=== PATIENT | male | born 1965 | race Caucasian/White ===

== ENCOUNTER → 2017-12-05 | Outpatient (CLI) | payer BC ==
--- NOTE | 2017-12-05 17:03 | XR ---
EXAMINATION TYPE: XR abdomen 1V DATE OF EXAM: 12/05/2017 CLINICAL DATA: 52-year-old male other intestinal obstruction, [facility] COMPARISON: None FINDINGS: Lung bases are clear. No evidence for free intraperitoneal air. Small air-fluid levels in the right side of the abdomen, probably within the ascending colon. Overall paucity of bowel gas limits assessment. No definite suspicious calcification seen. IMPRESSION: Overall paucity of bowel gas limits assessment. There are small air-fluid levels in the right side of the abdomen, probably within the ascending colon. This would suggest enteritis or ileus rather than small bowel obstruction. Radiographic follow-up may be helpful.
== END | disposition home or self-care (01) ==
LOC: RADXRMAIN 14:56
PROVIDERS: ATTEND Family Medicine
DX: R18.8 Other ascites (principal)
CPT/HCPCS: 74018

== ENCOUNTER 2017-12-11 15:42 | Emergency (ER) | payer BC ==
[2017-12-11] MEDS ORDERED: SODIUM CHLORIDE 0.9% 1,000 ML IV STA (16:26)
[2017-12-11] MEDS ORDERED: SODIUM CHLORIDE 0.9% 500 ML IV STA (16:26)
[2017-12-11] MEDS ORDERED: ONDANSETRON 4 MG/2 ML VIAL IVP STA (16:26)
[2017-12-11 16:51] LABS: Basophils % (A) 0 %; Eosinophils # (A) 0.3 k/uL (0-0.7); Eosinophils % (A) 3 %; HCT 39.9 % (39.0-53.0); HGB 13.2 gm/dL (13.0-17.5); Lymphocytes # (A) 2.3 k/uL (1.0-4.8); Lymphocytes % (A) 25 %; MCH 28.9 pg (25.0-35.0); MCV 87.4 fL (80.0-100.0); Mean Platelet Volume 6.4; Monocytes # (A) 0.5 k/uL (0-1.0); Monocytes % (A) 5 %; Neutrophils % (A) 65 %; Platelet Count 255 k/uL (150-450); RBC 4.56 m/uL (4.30-5.90); RDW 12.8 % (11.5-15.5); WBC 9.3 k/uL (3.8-10.6)
[2017-12-11 17:04] LABS: ALT 26 U/L (21-72); AST 24 U/L (17-59); Albumin 3.9 g/dL (3.5-5.0); Alkaline Phosphatase 66 U/L (38-126); Amylase 43 U/L (30-110); Anion Gap 7 mmol/L; Blood Urea Nitrogen 7 mg/dL (9-20); Calcium 8.9 mg/dL (8.4-10.2); Carbon Dioxide 26 mmol/L (22-30); Chloride 105 mmol/L (98-107); Glucose 117 mg/dL (74-99); Lipase 436 U/L (23-300); Potassium 4.2 mmol/L (3.5-5.1); Sodium 138 mmol/L (137-145); Total Bilirubin 0.3 mg/dL (0.2-1.3); Total Protein 6.5 g/dL (6.3-8.2)
[2017-12-11] MEDS: MORPHINE SULFATE 2 MG/ML SYRINGE IVP STA ×2 (17:15→17:16)
--- NOTE | 2017-12-11 17:19 | ED ---
Abdominal Pain HPI - General Chief Complaint: Abdominal Pain Stated Complaint: Back /Abd Pain Time Seen by Provider: 12/11/17 16:03 Source: patient Mode of arrival: ambulatory Limitations: no limitations - History of Present Illness Initial Comments: 22 years old male has abdominal pain and now constipation for last few days he stated that her family doctor wanted to CT of the abdomen this morning he been feeling some abdominal pain pain in the abdomen as well as pain in the flank areas is requesting CAT scan. Denies any headaches no neck stiffness no chest pain or shortness of breath has abdominal pain no frequency urgency dysuria no symptoms of TIA or CVA - Related Data Home Medications Medication Instructions Recorded Confirmed ALPRAZolam [Xanax] 1 mg PO TID PRN 12/11/17 12/11/17 Aspirin/Acetaminophen/Caffeine 1 tab PO Q12H PRN 12/11/17 12/11/17 [Excedrin Migraine Caplet] Cyclobenzaprine [Flexeril] 10 mg PO DIRECTED 12/11/17 12/11/17 Dextroamphetamine/Amphetamine 20 mg PO DAILY 12/11/17 12/11/17 [Adderall] Gabapentin [Neurontin] 300 mg PO TID 12/11/17 12/11/17 HYDROcodone/APAP 7.5-325MG [[place] 1 tab PO Q6HR PRN 12/11/17 12/11/17 7.5-325] Ibuprofen [Motrin] 600 mg PO QID PRN 12/11/17 12/11/17 Tadalafil [Cialis] 20 mg PO ONCE PRN 12/11/17 12/11/17 Previous Rx's Medication Instructions Recorded Ciprofloxacin HCl [Cipro] 500 mg PO Q12HR #14 tablet 12/11/17 metroNIDAZOLE [Flagyl] 500 mg PO TID #21 tab 12/11/17 Allergies Allergy/AdvReac Type Severity Reaction Status Date / Time cetirizine HCl [From Zyrtec] Allergy Unknown Verified 12/11/17 17:06 Review of Systems ROS Statement: Those systems with pertinent positive or pertinent negative responses have been documented in the HPI. ROS Other: All systems not noted in ROS Statement are negative. Past Medical History Past Medical History: Osteoarthritis (OA) Additional Past Medical History / Comment(s): chronic back pain History of Any Multi-Drug Resistant Organisms: None Reported Past Surgical History: Tonsillectomy Additional Past Surgical History / Comment(s): eye surgery, vasectomy Past Psychological History: No Psychological Hx Reported Smoking Status: Current every day smoker Past Alcohol Use History: Abuse, Daily Past Drug Use History: None Reported General Exam - General Exam Comments Initial Comments: General: The patient is awake and alert, in no distress Skin: Skin is warm and dry and no rashes or lesions are noted. Eye: Pupils are equal, round and reactive to light, extra-ocular movements are intact; there is normal conjunctiva bilaterally. Ears, nose, mouth and throat: There are moist mucous membranes and no oral lesions. Neck: The neck is supple, there is no tenderness or JVD. Cardiovascular: There is a regular rate and rhythm. No murmur, rub or gallop is appreciated. Respiratory: To auscultation bilateral, no wheezing no rhonchi no distress respiratory sierra noticed Gastrointestinal: Mild diffuse tenderness all over the abdomen and over the flank areas Back: There is no tenderness to palpation in the midline. There is no obvious deformity. Musculoskeletal: Normal ROM, no tenderness, There is no pedal edema. There is no calf tenderness or swelling. No cords were appreciated. Neurological: CN II-XII intact, Cranial nerves III through XII are intact. There are no obvious motor or sensory deficits. Coordination appears grossly intact. Speech is normal. Psychiatric: Cooperative, appropriate mood & affect, normal judgment. Limitations: no limitations Course Vital Signs 12/11/17 12/11/17 15:44 17:20 Temperature 97.8 F Pulse Rate 91 77 Respiratory 18 16 Rate Blood Pressure 120/85 117/61 O2 Sat by Pulse [address] abdomen showed down colitis as well as enteritis lipase is 436 CBC and CMP is normal patient be gone on him and Cipro and Flagyl for his enteritis is advised not to use any laxatives and now be on a soft diet for next couple days and return to ER if symptoms get worse Medical Decision Making - Lab Data Result diagrams: 12/11/17 16:30 12/11/17 16:30 Lab Results 12/11/17 12/11/17 12/11/17 Range/Units 16:30 16:30 17:20 WBC 9.3 (3.8-10.6) k/uL RBC 4.56 (4.30-5.90) m/uL Hgb 13.2 (13.0-17.5) gm/dL Hct 39.9 (39.0-53.0) % MCV 87.4 (80.0-100.0) fL MCH 28.9 (25.0-35.0) pg MCHC 33.0 (31.0-37.0) g/dL RDW 12.8 (11.5-15.5) % Plt Count 255 (150-450) k/uL Neutrophils % 65 % Lymphocytes % 25 % Monocytes % 5 % Eosinophils % 3 % Basophils % 0 % Neutrophils # 6.0 (1.3-7.7) k/uL Lymphocytes # 2.3 (1.0-4.8) k/uL Monocytes # 0.5 (0-1.0) k/uL Eosinophils # 0.3 (0-0.7) k/uL Basophils # 0.0 (0-0.2) k/uL Sodium 138 (137-145) mmol/L Potassium 4.2 (3.5-5.1) mmol/L Chloride 105 (98-107) mmol/L Carbon Dioxide 26 (22-30) mmol/L Anion Gap 7 mmol/L BUN 7 L (9-20) mg/dL Creatinine 0.60 L (0.66-1.25) mg/dL Est GFR (CKD-EPI)AfAm >90 (>60 ml/min/1.73 sqM) Est GFR (CKD-EPI)NonAf >90 (>60 ml/min/1.73 sqM) Glucose 117 H (74-99) mg/dL Calcium 8.9 (8.4-10.2) mg/dL Total Bilirubin 0.3 (0.2-1.3) mg/dL AST 24 (17-59) U/L ALT 26 (21-72) U/L Alkaline Phosphatase 66 (38-126) U/L Total Protein 6.5 (6.3-8.2) g/dL Albumin 3.9 (3.5-5.0) g/dL Amylase 43 (30-110) U/L Lipase 436 H (23-300) U/L Prostate Specific Ag 0.69 (0.00-4.00) ng/mL Urine Color Light Yellow Urine Appearance Clear (Clear) Urine pH 6.5 (5.0-8.0) Ur Specific [place] 1.006 (1.001-1.035) Urine Protein Negative (Negative) Urine Glucose (UA) Negative (Negative) Urine Ketones Negative (Negative) Urine Blood Negative (Negative) Urine Nitrite Negative (Negative) Urine Bilirubin Negative (Negative) Urine Urobilinogen <2.0 (<2.0) mg/dL Ur Leukocyte Esterase Negative (Negative) Disposition Clinical Impression: Pancreatitis, Colitis, Enteritis Disposition: HOME SELF-CARE Condition: Good Instructions: Colitis (ED) Prescriptions: Ciprofloxacin HCl [Cipro] 500 mg PO Q12HR #14 tablet metroNIDAZOLE [Flagyl] 500 mg PO TID #21 tab Is patient prescribed a controlled substance at d/c from ED?: No Referrals: Arian Rubio DO [Primary Care Provider] - 1-2 days
--- NOTE | 2017-12-11 17:21 | XR ---
EXAMINATION TYPE: XR KUB DATE OF EXAM: 12/11/2017 4:50 PM CLINICAL HISTORY: Abdominal pain TECHNIQUE: Single upright image of the abdomen is obtained. COMPARISON: None. FINDINGS: Scattered gas is seen in nondilated small bowel loops. Gas and fecal material is seen in no ndilated colon. Few colonic air-fluid levels are suggestive of malabsorption and possible diarrhea. T here is no visceromegaly, pneumoperitoneum, or abnormal calcification appreciated. The lung bases are clear and the osseous structures are intact. There is a mild levoscoliotic curvature of the lumbosac ral spine. IMPRESSION: 1. Nonobstructive bowel gas pattern. 2. Few colonic air-fluid levels are suggestive of colonic malabsorption/diarrhea. No large bowel dila tation to suggest obstruction.
[2017-12-11 17:30] LABS: Appearance,Urine Clear (Clear); Bilirubin,Urine Negative (Negative); Blood,Urine Negative (Negative); Color,Urine Light Yellow; Glucose,Urine (UA) Negative (Negative); Ketones,Urine Negative (Negative); Leukocyte Esterase,Urine Negative (Negative); Nitrite,Urine Negative (Negative); PH, Urine 6.5 (5.0-8.0); Protein,Urine Negative (Negative); Specific Gravity,Urine 1.006 (1.001-1.035); Urobilinogen,Urine <2.0 mg/dL (<2.0)
[2017-12-11 17:33] LABS: Prostate Specific Antigen 0.69 ng/mL (0.00-4.00)
--- NOTE | 2017-12-11 18:04 | CT ---
EXAMINATION TYPE: CT abdomen pelvis w con DATE OF EXAM: 12/11/2017 COMPARISON: None HISTORY: Abdominal pain CT DLP: 418 mGycm Automated exposure control for dose reduction was used. TECHNIQUE: Helical acquisition of images was performed from the lung bases through the pelvis. CONTRAST: Performed without Oral Contrast and with IV Contrast, patient injected with 100 mL of Isovue 300. FINDINGS: LUNG BASES: Minimal bibasilar subsegmental dependent atelectasis. LIVER/GB: Gallbladder is partially contracted. No radiopaque gallstones. PANCREAS: No significant abnormality is seen. SPLEEN: No significant abnormality is seen. ADRENALS: No significant abnormality is seen. KIDNEYS: Kidneys enhance and excrete symmetrically without hydronephrosis. FREE AIR: No free air is visualized. ADENOPATHY: No greater than 1 cm short axis lymph nodes are seen within the abdomen or pelvis. There are multiple nonenlarged periaortic lymph nodes and scattered mesenteric lymph nodes. REPRODUCTIVE ORGANS: Prostate gland is heterogenous containing central zone calcifications. URINARY BLADDER: Urinary bladder demonstrates circumferential wall thickening that may relate to inc omplete distention. Correlate with urinalysis. Small urachal remnant is incidentally noted. OSSEOUS STRUCTURES: Osseous structures are intact. Multilevel mild degenerative change. BOWEL: Large bowel is nondilated containing few air-fluid levels within the right hemicolon. No evid ence of small bowel dilatation. Lack of contrast limits evaluation for bowel wall thickening. Minimal left mid abdominal bowel wall thickening of the small bowel is suggested. No evidence of dilated bow el to suggest obstruction. OTHER: Abdominal aorta is of normal course and caliber with mild calcific atheromatous changes. IMPRESSION: 1. Air-fluid levels within the right hemicolon suggestive of colonic malabsorption. This can be seen in inflammatory/infectious colitis. No significant pericolonic fat stranding although there is limita tion of bowel due to lack of oral contrast there is suggestion of multifocal small bowel wall thicken ing within the left mid abdomen that also may relate to inflammatory or infectious enteritis. No evid ence of bowel obstruction. 2. Urinary bladder wall thickening may relate to incomplete distention or cystitis. Correlate with ur inalysis.
[2017-12-11 18:56] VITALS: BP 115/72; PULSE 79; RESP 18; TEMP 98.2
== END 2017-12-11 18:55 | disposition home or self-care (01) ==
LOC: EC 15:42
DX: K85.90 Acute pancreatitis without necrosis or infection, unspecified (principal); K52.9 Noninfective gastroenteritis and colitis, unspecified; K59.00 Constipation, unspecified; F17.200 Nicotine dependence, unspecified, uncomplicated; Z98.52 Vasectomy status; Z79.899 Other long term (current) drug therapy; Z88.8 Allergy status to other drugs, medicaments and biological substances
CPT/HCPCS: 99284; 96374; 96361 ×2; 36415; 84153; 80053; 82150; 83690; 85025; 81003; 74018; 74177; Q9967

== ENCOUNTER 2017-12-16 14:56 | Emergency (ER) | payer BC ==
[2017-12-16 15:01] VITALS: RESP 18
--- NOTE | 2017-12-16 15:45 | ED ---
General Adult HPI - General Chief complaint: Abdominal Pain Stated complaint: lower back and flank pain Time Seen by Provider: 12/16/17 15:14 Source: patient, RN notes reviewed Mode of arrival: ambulatory Limitations: no limitations - History of Present Illness Initial comments: This is a 52-year-old male who presents to the emergency department with chief complaint of left lower back pain. Patient states that he has chronic back pain but that this does not feel like a musculoskeletal issue. He states he was seen here on December 11 and was diagnosed with pancreatitis, enteritis and colitis because a CT scan of the abdomen and pelvis was obtained. He has been taking Cipro and Flagyl. Patient states that his pain has not yet gone away. He states that he is concerned because he noticed dark colored urine that started yesterday. Denies any fevers or chills, vomiting, diarrhea or constipation. Denies any blood in the stool. Patient states that he is not having any abdominal pain. - Related Data Home Medications Medication Instructions Recorded Confirmed ALPRAZolam [Xanax] 1 mg PO TID PRN 12/11/17 12/11/17 Aspirin/Acetaminophen/Caffeine 1 tab PO Q12H PRN 12/11/17 12/11/17 [Excedrin Migraine Caplet] Cyclobenzaprine [Flexeril] 10 mg PO DIRECTED 12/11/17 12/11/17 Dextroamphetamine/Amphetamine 20 mg PO DAILY 12/11/17 12/11/17 [Adderall] Gabapentin [Neurontin] 300 mg PO TID 12/11/17 12/11/17 HYDROcodone/APAP 7.5-325MG [[place] 1 tab PO Q6HR PRN 12/11/17 12/11/17 7.5-325] Ibuprofen [Motrin] 600 mg PO QID PRN 12/11/17 12/11/17 Tadalafil [Cialis] 20 mg PO ONCE PRN 12/11/17 12/11/17 Previous Rx's Medication Instructions Recorded Ciprofloxacin HCl [Cipro] 500 mg PO Q12HR #14 tablet 12/11/17 metroNIDAZOLE [Flagyl] 500 mg PO TID #21 tab 12/11/17 Allergies Allergy/AdvReac Type Severity Reaction Status Date / Time cetirizine HCl [From Zyrtec] Allergy Unknown Verified 12/16/17 15:00 Review of Systems ROS Statement: Those systems with pertinent positive or pertinent negative responses have been documented in the HPI. ROS Other: All systems not noted in ROS Statement are negative. Past Medical History Past Medical History: Osteoarthritis (OA) Additional Past Medical History / Comment(s): chronic back pain History of Any Multi-Drug Resistant Organisms: None Reported Past Surgical History: Tonsillectomy Additional Past Surgical History / Comment(s): eye surgery, vasectomy Past Psychological History: No Psychological Hx Reported Smoking Status: Current every day smoker Past Alcohol Use History: Abuse, Daily Past Drug Use History: None Reported General Exam - General Exam Comments Initial Comments: General: Awake and alert, well-developed; in no apparent distress. Patient does not appear acutely ill. HEENT: Head atraumatic, normocephalic. Pupils are equal, round and reactive to light. Extraocular movements intact. Oropharynx moist without erythema or exudate. Neck: Supple. Normal ROM. Cardiovascular: Regular rate and rhythm. No murmurs, rubs or gallops. Chest symmetrical. Respiratory: Lungs clear to auscultation bilaterally. No wheezes, rales or rhonchi. Normal respiratory effort with no use of accessory muscles. Abdomen: Soft, non-tender, non-distended. No rigidity, rebound or guarding. Normal bowel sounds in all 4 quadrants. Musculoskeletal: Normal ROM, no tenderness bilateral upper and lower extremities. Ambulating normally. Skin: [place], warm and dry without rashes or lesions. Neurological: Alert and oriented x3. CN II-XII grossly intact. Speech is fluent and answers are appropriate. No focal neuro deficits. Psychiatric: Normal mood and affect. No overt signs of depression or anxiety noted. Limitations: no limitations Back exam: Present: normal inspection, full ROM. Absent: tenderness, paraspinal tenderness, vertebral tenderness Course Vital Signs 12/16/17 14:58 Temperature 97.8 F Pulse Rate 85 Respiratory 18 Rate Blood Pressure 122/77 O2 Sat by Pulse 98 Oximetry Medical Decision Making - Medical Decision Making This is a 52-year-old male who presents to the emergency department with chief complaint of left lower back pain. Patient states he was evaluated for this 6 days ago and was diagnosed with enteritis, colitis and pancreatitis. Patient is on Cipro and Flagyl. Patient states the pain has not gone away but it also has not worsened. He states that he presents to the emergency department because he has noticed dark colored urine and is nervous that he has blood in the urine. CBC, CMP and UA are unremarkable. No evidence of hematuria. Patient states that the pain he is feeling in his left lower back, however he states he knows it is not his back as he has dealt with chronic back pain for most of his life for which he takes [place]. Patient refuses any radiology studies of the back. Vital signs have been stable and patient is in no acute distress. Recommended following up with his primary care provider. Patient will be discharged home at this time. All questions answered. - Lab Data Result diagrams: 12/16/17 15:44 12/16/17 15:44 Lab Results 12/16/17 12/16/17 12/16/17 Range/Units 15:44 15:44 15:44 WBC 8.2 (3.8-10.6) k/uL RBC 4.80 (4.30-5.90) m/uL Hgb 13.4 (13.0-17.5) gm/dL Hct 42.0 (39.0-53.0) % MCV 87.6 (80.0-100.0) fL MCH 27.8 (25.0-35.0) pg MCHC 31.8 (31.0-37.0) g/dL RDW 13.0 (11.5-15.5) % Plt Count 271 (150-450) k/uL Neutrophils % 63 % Lymphocytes % 28 % Monocytes % 5 % Eosinophils % 3 % Basophils % 0 % Neutrophils # 5.1 (1.3-7.7) k/uL Lymphocytes # 2.3 (1.0-4.8) k/uL Monocytes # 0.4 (0-1.0) k/uL Eosinophils # 0.2 (0-0.7) k/uL Basophils # 0.0 (0-0.2) k/uL Sodium 138 (137-145) mmol/L Potassium 4.2 (3.5-5.1) mmol/L Chloride 106 (98-107) mmol/L Carbon Dioxide 24 (22-30) mmol/L Anion Gap 8 mmol/L BUN 7 L (9-20) mg/dL Creatinine 0.68 (0.66-1.25) mg/dL Est GFR (CKD-EPI)AfAm >90 (>60 ml/min/1.73 sqM) Est GFR (CKD-EPI)NonAf >90 (>60 ml/min/1.73 sqM) Glucose 93 (74-99) mg/dL Calcium 9.3 (8.4-10.2) mg/dL Total Bilirubin 0.5 (0.2-1.3) mg/dL AST 29 (17-59) U/L ALT 26 (21-72) U/L Alkaline Phosphatase 62 (38-126) U/L Total Protein 6.9 (6.3-8.2) g/dL Albumin 4.4 (3.5-5.0) g/dL Urine Color Yellow Urine Appearance Cloudy (Clear) Urine pH 5.5 (5.0-8.0) Ur Specific [place] 1.007 (1.001-1.035) Urine Protein Negative (Negative) Urine Glucose (UA) Negative (Negative) Urine Ketones Negative (Negative) Urine Blood Negative (Negative) Urine Nitrite Negative (Negative) Urine Bilirubin Negative (Negative) Urine Urobilinogen <2.0 (<2.0) mg/dL Ur Leukocyte Esterase Negative (Negative) Urine RBC <1 (0-5) /hpf Urine WBC 1 (0-5) /hpf Ur Squamous Epith Cells <1 (0-4) /hpf Amorphous Sediment Occasional H (None) /hpf Urine Bacteria Occasional H (None) /hpf Urine Mucus Moderate H (None) /hpf Disposition Clinical Impression: Low back pain Disposition: HOME SELF-CARE Condition: Good Instructions: Back Pain (ED) Additional Instructions: Please follow up with primary care provider within 1-2 days. Return to emergency department if symptoms should worsen or any concerns arise. Is patient prescribed a controlled substance at d/c from ED?: No Referrals: Arian Rubio DO [Primary Care Provider] - 1-2 days Time of Disposition: 16:32
[2017-12-16 15:52] LABS: Basophils % (A) 0 %; Eosinophils # (A) 0.2 k/uL (0-0.7); Eosinophils % (A) 3 %; HGB 13.4 gm/dL (13.0-17.5); Lymphocytes # (A) 2.3 k/uL (1.0-4.8); Lymphocytes % (A) 28 %; MCH 27.8 pg (25.0-35.0); MCHC 31.8 g/dL (31.0-37.0); MCV 87.6 fL (80.0-100.0); Mean Platelet Volume 6.5; Monocytes # (A) 0.4 k/uL (0-1.0); Monocytes % (A) 5 %; Neutrophils # (A) 5.1 k/uL (1.3-7.7); Neutrophils % (A) 63 %; Platelet Count 271 k/uL (150-450); WBC 8.2 k/uL (3.8-10.6)
[2017-12-16 15:58] LABS: Amorphous Sediment,Urine Occasional /hpf; Appearance,Urine Cloudy (Clear); Bacteria,Urine Occasional /hpf; Bilirubin,Urine Negative (Negative); Blood,Urine Negative (Negative); Color,Urine Yellow; Glucose,Urine (UA) Negative (Negative); Ketones,Urine Negative (Negative); Leukocyte Esterase,Urine Negative (Negative); Mucus,Urine Moderate /hpf; Nitrite,Urine Negative (Negative); PH, Urine 5.5 (5.0-8.0); Protein,Urine Negative (Negative); RBC,Urine <1 /hpf (0-5); Specific Gravity,Urine 1.007 (1.001-1.035); Squamous Epithelial Cell,Urine <1 /hpf (0-4); Urobilinogen,Urine <2.0 mg/dL (<2.0); WBC,Urine 1 /hpf (0-5)
[2017-12-16 16:01] LABS: ALT 26 U/L (21-72); AST 29 U/L (17-59); Albumin 4.4 g/dL (3.5-5.0); Alkaline Phosphatase 62 U/L (38-126); Anion Gap 8 mmol/L; Blood Urea Nitrogen 7 mg/dL (9-20); Calcium 9.3 mg/dL (8.4-10.2); Carbon Dioxide 24 mmol/L (22-30); Chloride 106 mmol/L (98-107); Glucose 93 mg/dL (74-99); Potassium 4.2 mmol/L (3.5-5.1); Sodium 138 mmol/L (137-145); Total Bilirubin 0.5 mg/dL (0.2-1.3); Total Protein 6.9 g/dL (6.3-8.2)
[2017-12-16 16:51] VITALS: BP 145/78; PULSE 73; TEMP 99
== END 2017-12-16 16:51 | disposition home or self-care (01) ==
LOC: EC 14:56
DX: M54.5 Low back pain (principal); R10.9 Unspecified abdominal pain; M19.90 Unspecified osteoarthritis, unspecified site; F17.200 Nicotine dependence, unspecified, uncomplicated; Z87.19 Personal history of other diseases of the digestive system; Z98.52 Vasectomy status; Z79.899 Other long term (current) drug therapy; Z88.8 Allergy status to other drugs, medicaments and biological substances
CPT/HCPCS: 36415; 80053; 81001; 85025; 99284

== ENCOUNTER → 2017-12-25 | Outpatient (CLI) | payer BC ==
--- NOTE | 2017-12-25 15:19 | NM ---
EXAMINATION TYPE: NM hepatobiliary w CCK DATE OF EXAM: 12/25/2017 COMPARISON: CT abdomen pelvis December 11, 2017. HISTORY: Chronic cholecystitis per order. Abdominal pain with diminished appetite per patient. TECHNIQUE: After the intravenous administration of 5.1 mCi Tc 99m Mebrofenin hepatobiliary scintigrap hy is performed. Immediate images post injection. FINDINGS: There is satisfactory initial accumulation of tracer by the liver. The gallbladder is visualized wit hin 15 minutes. The small bowel activity is noted within 60 minutes. At one hour CCK was administer ed, patient was injected with 1.5 mcg of Kinevac, and gallbladder ejection fraction is calculated at 86 %, not deviated from the normal range. Therefore there is no scintigraphic evidence of cystic or common bile duct obstruction to suggest acute cholecystitis. IMPRESSION: Ejection fraction is 86%, some consider this abnormal or a hyperkinetic response.
== END | disposition home or self-care (01) ==
LOC: RADNMMAIN 13:04
PROVIDERS: ATTEND Surgery
DX: K81.1 Chronic cholecystitis (principal)
CPT/HCPCS: 78227; A9537; J2805

== ENCOUNTER → 2021-06-29 | Outpatient (CLI) | payer OTHER ==
[2021-06-29 19:25] LABS: HCT 40.9 % (39.6-50.0); HGB 12.7 g/dL (13.0-17.0); MCH 28.7 pg (27.0-32.0); MCHC 31.1 g/dL (32.0-37.0); MCV 92.5 fL (80.0-97.0); Mean Platelet Volume 9.6 fL (9.5-12.2); NRBC Per 100 WBC 0 /100 WBCS (0.0-0.0); Platelet Count 312 X 10*3/uL (140-440); RBC 4.42 X 10*6/uL (4.40-5.60); RDW 13.4 % (11.5-14.5); WBC 12.57 X 10*3/uL (4.50-10.00)
[2021-06-29 19:53] LABS: ALT 26 U/L (10-49); AST 19 U/L (14-35); African American GFR (CKD) 126.3 (60.0-200.0); Albumin 4.4 g/dL (3.8-4.9); Albumin/Globulin Ratio 1.86 (1.60-3.17); Alkaline Phosphatase 113 U/L (41-126); BUN/Creat Ratio 12.39 Ratio (12.00-20.00); Blood Urea Nitrogen 8.3 mg/dL (9.0-27.0); Calcium 9.2 mg/dL (8.7-10.3); Chloride 104 mmol/L (96-109); Globulin 2.4 g/dL (1.6-3.3); Glucose 100 mg/dL (70-110); Non-African American GFR(CKD) 108.9 (60.0-200.0); Potassium 4.9 mmol/L (3.5-5.5); Sodium 139 mmol/L (135-145); Total Bilirubin <0.15 mg/dL (0.30-1.20); Total Protein 6.8 g/dL (6.2-8.2)
== END | disposition home or self-care (01) ==
LOC: LABWHC1 10:19
PROVIDERS: ATTEND Family Medicine
DX: E51.9 Thiamine deficiency, unspecified (principal); R20.9 Unspecified disturbances of skin sensation
CPT/HCPCS: 36415; 80053; 82607; 82746; 84425; 84443; 85027

== ENCOUNTER → 2021-09-22 | Outpatient (CLI) | payer OTHER | END | disposition home or self-care (01) | LOC: LABWHC1 09:21 | PROVIDERS: ATTEND Family Medicine | DX: Z53.9 Procedure and treatment not carried out, unspecified reason (principal) ==

== ENCOUNTER 2023-05-28 09:54 | Emergency (ER) | payer OTHER ==
[2023-05-28] MEDS ORDERED: ACETAMINOPHEN TAB 325 MG TAB PO STA (10:15)
--- NOTE | 2023-05-28 10:18 | ED ---
Upper Extremity HPI - General Chief Complaint: Extremity Injury, Upper Stated Complaint: L elbow injury Time Seen by Provider: 05/28/23 10:17 Source: patient, RN notes reviewed Mode of arrival: ambulatory Limitations: no limitations - History of Present Illness Initial Comments: Patient's 57-year-old male presented ER with chief complaint of left elbow pain and swelling. Patient states this started about 33 hours ago. Patient believes he was sleepwalking and might have injured it. Patient denies limited range of motion but does state it is painful to move. Patient also is endorsing pain and swelling in his left fingers. Patient reports that pain does radiate up into his neck. Patient is UTD on tetanus. Patient denies any history of gout, fevers, chills, night sweats, chest pain, shortness of breath. - Related Data Home Medications Medication Instructions Recorded Confirmed ALPRAZolam [Xanax] 1 mg PO TID PRN 12/11/17 12/11/17 Aspirin/Acetaminophen/Caffeine 1 tab PO Q12H PRN 12/11/17 12/11/17 [Excedrin Migraine Caplet] Cyclobenzaprine [Flexeril] 10 mg PO DIRECTED 12/11/17 12/11/17 Dextroamphetamine/Amphetamine 20 mg PO DAILY 12/11/17 12/11/17 [Adderall] Gabapentin [Neurontin] 300 mg PO TID 12/11/17 12/11/17 HYDROcodone/APAP 7.5-325MG [[place] 1 tab PO Q6HR PRN 12/11/17 12/11/17 7.5-325] Ibuprofen [Motrin] 600 mg PO QID PRN 12/11/17 12/11/17 tadalafiL [Cialis] 20 mg PO ONCE PRN 12/11/17 12/11/17 Previous Rx's Medication Instructions Recorded Ciprofloxacin HCl [Cipro] 500 mg PO Q12HR #14 tablet 12/11/17 metroNIDAZOLE [Flagyl] 500 mg PO TID #21 tab 12/11/17 clindamycin HCL 300 mg PO TID 14 Days #42 cap 05/28/23 Allergies Allergy/AdvReac Type Severity Reaction Status Date / Time cetirizine HCl [From Zyrtec] Allergy Unknown Verified 05/28/23 10:08 Review of Systems ROS Statement: Those systems with pertinent positive or pertinent negative responses have been documented in the HPI. ROS Other: All systems not noted in ROS Statement are negative. Past Medical History Past Medical History: Osteoarthritis (OA) Additional Past Medical History / Comment(s): chronic back pain History of Any Multi-Drug Resistant Organisms: None Reported Past Surgical History: Tonsillectomy Additional Past Surgical History / Comment(s): eye surgery, vasectomy Past Psychological History: No Psychological Hx Reported Smoking Status: Current every day smoker Past Alcohol Use History: Abuse, Daily Past Drug Use History: None Reported General Exam Limitations: no limitations General appearance: alert, in no apparent distress Head exam: Present: atraumatic, normocephalic, normal inspection Respiratory exam: Present: normal lung sounds bilaterally. Absent: respiratory distress, wheezes, rales, rhonchi, stridor Cardiovascular Exam: Present: normal rhythm, tachycardia, normal heart sounds Extremities exam: Present: other (Left elbow is erythematous and edematous. Warm to touch. 2+ left radial pulse. Equal strength bilaterally. Sensation intact. Full flexion/extension ) Neurological exam: Present: alert, oriented X3, CN II-XII intact Psychiatric exam: Present: normal affect, normal mood Skin exam: Present: warm, dry, normal color, other (Small superficial healing wounds noted on the third and second digits. No signs of infection.). Absent: rash Course Vital Signs 05/28/23 05/28/23 05/28/23 10:05 11:56 12:13 Temperature 102.1 F H 99.7 F H Pulse Rate 126 H 107 H Respiratory 20 18 Rate Blood Pressure 128/76 112/68 O2 Sat by Pulse 97 98 Oximetry Medical Decision Making - Medical Decision Making Was pt. sent in by a medical professional or institution (, PA, [facility], urgent care, hospital, or [facility]...) When possible be specific @ -No Did you speak to anyone other than the patient for history (EMS, parent, family, police, friend...)? What history was obtained from this source @ -No Did you review nursing and triage notes (agree or disagree)? Why? @ -I reviewed and agree with nursing and triage notes Were old charts reviewed (outside hosp., previous admission, EMS record, old EKG, old radiological studies, urgent care reports/EKG's, [facility] records)? Report findings @ -No old charts were reviewed Differential Diagnosis (chest pain, altered mental status, abdominal pain women, abdominal pain men, vaginal bleeding, weakness, fever, dyspnea, syncope, headache, dizziness, GI bleed, back pain, seizure, CVA, palpatations, mental health, musculoskeletal)? @ -Differential Musculoskeletal: Muscular strain, contusion, ligament sprain, fracture, arthritis, septic arthritis, bursitis, cellulitis, muscle spasm, nerve compression, DVT, arterial occlusion, herpes zoster, electrolyte abnormality, tumor.... This is not meant to be in all inclusive list EKG interpreted by me (3pts min.). @ -None X-rays interpreted by me (1pt min.). @ -Left elbow x-ray interpreted by me shows no acute osseous process. There is soft tissue swelling. CT interpreted by me (1pt min.). @ -None done U/S interpreted by me (1pt. min.). @ -None done What testing was considered but not performed or refused? (CT, X-rays, U/S, labs)? Why? @ -None What meds were considered but not given or refused? Why? @ -None Did you discuss the management of the patient with other professionals (professionals i.e. , PA, [facility], lab, RT, psych nurse, long term care social worker, functional manager, teacher, commissioned defence force officer, field nurse case manager)? Give summary @ -No Was smoking cessation discussed for >3mins.? @ -No Was critical care preformed (if so, how long)? @ -No Were there social determinants of health that impacted care today? How? (Homelessness, low income, unemployed, alcoholism, drug addiction, transportation, low edu. Level, literacy, decrease access to med. care, fci, rehab)? @ -No Was there de-escalation of care discussed even if they declined (Discuss DNR or withdrawal of care, Hospice)? DNR status @ -No What co-morbidities impacted this encounter? (DM, HTN, Smoking, COPD, CAD, Cancer, CVA, ARF, Chemo, Hep., AIDS, mental health diagnosis, sleep apnea, morbid obesity)? @ -None Was patient admitted / discharged? Hospital course, mention meds given and route, prescriptions, significant lab abnormalities, going to OR and other pertinent info. @ -Discharge. Patient is a 57-year-old male presented ER chief complaint of left elbow pain and swelling. On examination, temperature of 99.7. Vitals otherwise stable. Patient's left elbow was edematous and erythematous with extention distally. Neurovascularly intact. Labs were significant for a WBC 10.7, CRP 14 otherwise unremarkable. Left elbow x-rays interpreted by me shows no acute osseous pathology. There is soft tissue swelling correlated to bursitis or cellulitis. I discussed imaging and lab findings with patient. I advised on admission for IV antibiotics but patient refused. Strict return parameters were discussed. He received PO tylenol and 600mg Clindamycin in the ER. Patient prescribed clindamycin. I educated patient on the importance of completing full course of antibiotics. I advised [id number] Tylenol and Motrin for pain control. Patient will be discharged in stable condition with follow-up to PCP. He expressed understanding and agreement with care plan. Undiagnosed new problem with uncertain prognosis? @ -No Drug Therapy requiring intensive monitoring for toxicity (Heparin, Nitro, Insulin, Cardizem)? @ -No Were any procedures done? @ -No Diagnosis/symptom? @ -Infectious bursitis Acute, or Chronic, or Acute on Chronic? @ -Acute Uncomplicated (without systemic symptoms) or Complicated (systemic symptoms)? @ -Uncomplicated Side effects of treatment? @ -No Exacerbation, Progression, or Severe Exacerbation? @ -No Poses a threat to life or bodily function? How? (Chest pain, [place], [place], pneumonia, PE, COPD, DKA, ARF, appy, cholecystitis, CVA, Diverticulitis, Homicidal, Suicidal, threat to staff... and all critical care pts) @ -No - Lab Data Result diagrams: 05/28/23 10:24 05/28/23 10:24 Lab Results 05/28/23 05/28/23 Range/Units 10:24 10:24 WBC 10.7 H (3.8-10.6) k/uL RBC 4.85 (4.30-5.90) m/uL Hgb 13.4 (13.0-17.5) gm/dL Hct 40.8 (39.0-53.0) % MCV 84.2 (80.0-100.0) fL MCH 27.6 (25.0-35.0) pg MCHC 32.7 (31.0-37.0) g/dL RDW 14.6 (11.5-15.5) % Plt Count 183 (150-450) k/uL MPV 7.8 Hypochromasia Slight Sodium 127 L (137-145) mmol/L Potassium 4.2 (3.5-5.1) mmol/L Chloride 96 L (98-107) mmol/L Carbon Dioxide 21 L (22-30) mmol/L Anion Gap 10 mmol/L BUN 9 (9-20) mg/dL Creatinine 0.68 (0.66-1.25) mg/dL Est GFR (CKD-EPI)AfAm >90 (>60 ml/min/1.73 sqM) Est GFR (CKD-EPI)NonAf >90 (>60 ml/min/1.73 sqM) Glucose 108 H (74-99) mg/dL Uric Acid 3.3 L (3.5-8.5) mg/dL Calcium 8.4 (8.4-10.2) mg/dL Total Bilirubin 0.6 (0.2-1.3) mg/dL AST 32 (17-59) U/L ALT 21 (4-49) U/L Alkaline Phosphatase 126 (38-126) U/L C-Reactive Protein 14.5 H (<1.0) mg/dL Total Protein 7.1 (6.3-8.2) g/dL Albumin 4.0 (3.5-5.0) g/dL - Radiology Data Radiology results: report reviewed, image reviewed Disposition Clinical Impression: Other infective bursitis, left elbow Disposition: HOME SELF-CARE Condition: Stable Instructions (If sedation given, give patient instructions): Elbow Bursitis (ED) Additional Instructions: Please complete full course of clindamycin. Please use [id number] Tylenol and Motrin for pain control. Please return to the ER for any new or worsening symptoms. Prescriptions: clindamycin HCL 300 mg PO TID 14 Days #42 cap Is patient prescribed a controlled substance at d/c from ED?: No Referrals: Tim Rod MD [Primary Care Provider] - 1-2 days Time of Disposition: 12:09
--- NOTE | 2023-05-28 10:47 | XR ---
EXAMINATION TYPE: XR elbow complete LT DATE OF EXAM: 05/28/2023 10:38 AM CLINICAL INDICATION:Male, 57 years old with history of swelling; [facility] COMPARISON: None TECHNIQUE: XR elbow complete LT; elbow was examined in AP, lateral, and oblique projections. FINDINGS: No evidence of any acute osseous pathology or joint dislocation. There is soft tissue swell ing over the dorsal aspect of the forearm and elbow. No osseous erosion.. No evidence of joint effus ion is present. IMPRESSION: No evidence of acute fracture. Soft tissue swelling over the forearm dorsal aspect and elbow correlate for bursitis/cellulitis. No e vidence for osteomyelitis.
[2023-05-28 10:48] LABS: HCT 40.8 % (39.0-53.0); HGB 13.4 gm/dL (13.0-17.5); Hypochromasia Slight; MCH 27.6 pg (25.0-35.0); MCHC 32.7 g/dL (31.0-37.0); MCV 84.2 fL (80.0-100.0); Mean Platelet Volume 7.8; Platelet Count 183 k/uL (150-450); RBC 4.85 m/uL (4.30-5.90); RDW 14.6 % (11.5-15.5); WBC 10.7 k/uL (3.8-10.6)
[2023-05-28 11:11] LABS: ALT 21 U/L (4-49); AST 32 U/L (17-59); African American GFR (CKD) >90 (>60 ml/min/1.73 sqM); Alkaline Phosphatase 126 U/L (38-126); Anion Gap 10 mmol/L; Blood Urea Nitrogen 9 mg/dL (9-20); Calcium 8.4 mg/dL (8.4-10.2); Carbon Dioxide 21 mmol/L (22-30); Chloride 96 mmol/L (98-107); Glucose 108 mg/dL (74-99); Non-African American GFR(CKD) >90 (>60 ml/min/1.73 sqM); Potassium 4.2 mmol/L (3.5-5.1); Sodium 127 mmol/L (137-145); Total Bilirubin 0.6 mg/dL (0.2-1.3); Total Protein 7.1 g/dL (6.3-8.2); Uric Acid 3.3 mg/dL (3.5-8.5)
[2023-05-28 11:47] LABS: C Reactive Protein 14.5 mg/dL (<1.0)
[2023-05-28 12:01] VITALS: BP 112/68; PULSE 107; RESP 18
[2023-05-28] MEDS ORDERED: CLINDAMYCIN 150 MG CAP PO STA (12:15)
[2023-05-28 12:24] VITALS: TEMP 99.7
[2023-05-28 17:01] LABS: Erythrocyte Sedimentation Rate 43 mm/Hr (0-20)
== END 2023-05-28 12:32 | disposition home or self-care (01) ==
LOC: EC 09:54
DX: M71.22 Synovial cyst of popliteal space [Baker], left knee (principal); M19.90 Unspecified osteoarthritis, unspecified site; F17.200 Nicotine dependence, unspecified, uncomplicated; Z79.899 Other long term (current) drug therapy; Z88.8 Allergy status to other drugs, medicaments and biological substances; Z79.82 Long term (current) use of aspirin
CPT/HCPCS: 36415; 80053; 84550; 85027; 85652; 86140; 99284

== ENCOUNTER 2023-05-29 09:06 | Inpatient (IN) | payer OTHER ==
[2023-05-29] MEDS ORDERED: KETOROLAC 15 MG/ML 1 ML VIAL IVP STA (09:21)
[2023-05-29] MEDS ORDERED: SODIUM CHLORIDE 0.9% 1,000 ML IV STA ×3 (09:25→11:58)
[2023-05-29] MEDS ORDERED: ACETAMINOPHEN TAB 500 MG TAB PO STA (09:25)
[2023-05-29] MEDS ORDERED: ONDANSETRON 4 MG/2 ML VIAL IVP STA (09:32)
[2023-05-29] MEDS ORDERED: VANCOMYCIN IV PER PHARMACY 1 EACH MISC MISCELLANE PRN (09:33)
[2023-05-29] MEDS ORDERED: VANCOMYCIN 1,250 MG in SODIUM CHLORIDE 0.9% 250 ML IVPB STA (09:40)
--- NOTE | 2023-05-29 09:44 | ED ---
Extremity Problem HPI - General Chief complaint: Recheck/Abnormal Lab/Rx Stated complaint: Celulitis Time Seen by Provider: 05/29/23 09:20 Source: patient, RN notes reviewed Mode of arrival: ambulatory Limitations: no limitations - History of Present Illness Initial comments: This is a 57 year old male who presents to the emergency department for left el bow pain and swelling. Patient was evaluated here for this yesterday, and at that time symptoms had been occurring for approximately 33 hours. Symptoms were thought to be related to an infectious bursitis and it was recommended that the patient stay for admission and IV antibiotics. However he refused at that time. He was given a dose of IV clindamycin in the emergency department and discharge d with oral Clindamycin. Patient states that since going home he has been vomiting and is unable to keep down the antibiotics. Overnight the swelling, redness, and warmth have also increased. He is still able to move the arm but states that it is painful. MD Complaint: extremity pain, extremity swelling - Related Data Home Medications Medication Instructions Recorded Confirmed Dextroamphetamine/Amphetamine 20 mg PO BID 12/11/17 05/29/23 [Adderall] Gabapentin [Neurontin] 300 mg PO TID 12/11/17 05/29/23 Butalb/APAP/Caff 50-325-40Mg 1 tab PO DAILY 05/29/23 05/29/23 [Fioricet 50-325-40] Celecoxib [CeleBREX] 200 mg PO BID 05/29/23 05/29/23 Diclofenac Sodium [Solaraze 3% Gel] 1 applic TOPICAL QID PRN 05/29/23 05/29/23 Ergocalciferol (Vitamin D2) 1,250 mcg PO MO 05/29/23 05/29/23 [Drisdol (50,000 Iu)] Folic Acid 1 mg PO DAILY 05/29/23 05/29/23 HYDROcodone/APAP 10-325MG [[place] 1 tab PO QID 05/29/23 05/29/23 10-325] NIFEdipine [Adalat CC] 30 mg PO DAILY 05/29/23 05/29/23 Rimegepant Sulfate [Nurtec Odt] 75 mg PO Q48H 05/29/23 05/29/23 Thiamine 100ml/Ml Solution 1 ml INJ DAILY 01/16/24 01/16/24 diphenhydrAMINE [Benadryl] 25 mg PO BID PRN 05/29/23 05/29/23 Allergies Allergy/AdvReac Type Severity Reaction Status Date / Time cetirizine HCl [From Zyrtec] Allergy Unknown Verified 05/29/23 09:19 clindamycin Allergy Nausea & Verified 05/29/23 12:27 Vomiting & Diarrhea Review of Systems ROS Statement: Those systems with pertinent positive or pertinent negative responses have been documented in the HPI. ROS Other: All systems not noted in ROS Statement are negative. Past Medical History Past Medical History: Osteoarthritis (OA) Additional Past Medical History / Comment(s): chronic back pain History of Any Multi-Drug Resistant Organisms: None Reported Past Surgical History: Tonsillectomy Additional Past Surgical History / Comment(s): eye surgery, vasectomy Past Psychological History: No Psychological Hx Reported Smoking Status: Current every day smoker Past Alcohol Use History: Abuse, Daily Past Drug Use History: None Reported General Exam Limitations: no limitations General appearance: alert, in no apparent distress Head exam: Present: atraumatic, normocephalic, normal inspection Respiratory exam: Present: normal lung sounds bilaterally. Absent: respiratory distress, wheezes, rales, rhonchi, stridor Cardiovascular Exam: Present: normal rhythm, tachycardia Extremities exam: Present: other (Swelling, tenderness, erythema, and warmth along the left olecranon bursa spreading distally. Range of motion limited by pain but still intact. 2+ radial pulses.) Neurological exam: Present: alert, oriented X3, CN II-XII intact Psychiatric exam: Present: normal affect, normal mood Course Vital Signs 05/29/23 05/29/23 09:17 13:40 Temperature 100.6 F H 98 F Pulse Rate 120 H 91 Respiratory 20 16 Rate Blood Pressure 114/68 126/74 O2 Sat by Pulse 99 97 Oximetry Medical Decision Making - Medical Decision Making This is a 57-year-old male who presents to the emergency department for left elbow pain and swelling. Was pt. sent in by a medical professional or institution? @ -No Did you speak to anyone other than the patient for history? @ -No Did you review nursing and triage notes? @ -Yes, and I agree, it is accurate with regards to the patient's symptoms. Were old charts reviewed? @ -No Differential Diagnosis? @ -Differential Musculoskeletal: Muscular strain, contusion, ligament sprain, fracture, arthritis, septic arthritis, bursitis, cellulitis, muscle spasm, nerve compression, DVT, arterial occlusion, herpes zoster, electrolyte abnormality, tumor.... This is not meant to be in all inclusive list EKG interpreted by me (3pts min.)? @ -Not obtained X-rays interpreted by me (1pt min.)? @ -X-ray of the left elbow obtained. My interpretation identifies soft tissue swelling. CT interpreted by me (1pt min.)? @ -Not obtained U/S interpreted by me (1pt. min.)? @ -Not obtained What testing was considered but not performed? (CT, X-rays, U/S, labs)? Why? @ -None What meds were considered but not given? Why? @ -None Did you discuss the management of the patient with other professionals? @ -Yes, Dr. Rod, who accepts the patient for admission. Did you reconcile home meds? @ -Yes Was smoking cessation discussed for >3mins.? @ -I discussed smoking cessation for greater than 3 minutes. The risk of smoking were discussed with the patient including but not limited to risks of cancer, stroke, coronary artery disease and COPD. Also discussed with patient were multiple methods of quitting smoking. Lastly we discussed the financial cost of smoking. Was critical care preformed (if so, how long)? @ -No Were there social determinants of health that impacted care today? How? (Home lessness, low income, unemployed, alcoholism, drug addiction, transportation, low edu. Level, literacy, decrease access to med. care, fci, rehab)? @ -No Was there de-escalation of care discussed even if they declined? (Discuss DNR or withdrawal of care, Hospice)? @ -No What co-morbidities impacted this encounter? (DM, HTN, Smoking, COPD, CAD, Cancer, CVA, Hep., AIDS, mental health diagnosis, sleep apnea, morbid obesity)? @ -Smoking, osteoarthritis Was patient admitted / discharged? @ -Admitted. Patient was febrile and tachycardic on arrival. Lab work reveals leukocytosis, which has increased to 18.5 from 10.7 yesterday. Lactic acid elevated at 2.3. Patient is also hyponatremic with a sodium of 126. X-ray of the left elbow obtained demonstrating persistent soft tissue swelling to the dorsal olecranon and dorsal proximal forearm. Patient was given a 2L bolus of IV fluids and started on maintenance fluids. He was also started on vancomycin and blood cultures were obtained. Patient admitted to medicine for infectious bursitis and hyponatremia. Consult placed for orthopedics and infectious disease. Undiagnosed new problem with uncertain prognosis? @ -None Drug Therapy requiring intensive monitoring for toxicity (Heparin, Nitro, Insulin, Cardizem)? @ -None Were any procedures done? @ -None Diagnosis/symptom? @ -Infectious bursitis, hyponatremia Acute, or Chronic, or Acute on Chronic? @ -Acute Uncomplicated (without systemic symptoms) or Complicated (systemic symptoms)? @ -Complicated Side effects of treatment? @ -None Exacerbation, Progression, or Severe Exacerbation] @ -Not applicable Poses a threat to life or bodily function? @ -Yes This case was discussed in detail with the attending ED physician, Dr. Caballero. Presentation, findings, and treatment plan discussed in detail as well. - Lab Data Result diagrams: 05/29/23 10:44 05/29/23 10:44 Lab Results 05/29/23 05/29/23 05/29/23 Range/Units 10:44 10:44 10:44 WBC 18.5 H (3.8-10.6) k/uL RBC 4.90 (4.30-5.90) m/uL Hgb 13.3 (13.0-17.5) gm/dL Hct 41.1 (39.0-53.0) % MCV 84.0 (80.0-100.0) fL MCH 27.1 (25.0-35.0) pg MCHC 32.3 (31.0-37.0) g/dL RDW 14.7 (11.5-15.5) % Plt Count 169 (150-450) k/uL MPV 7.8 Neutrophils % 92 % Lymphocytes % 3 % Monocytes % 3 % Eosinophils % 1 % Basophils % 0 % Neutrophils # 17.1 H (1.3-7.7) k/uL Lymphocytes # 0.5 L (1.0-4.8) k/uL Monocytes # 0.5 (0-1.0) k/uL Eosinophils # 0.1 (0-0.7) k/uL Basophils # 0.0 (0-0.2) k/uL Hypochromasia Slight ESR 72 H (0-20) mm/Hr Sodium 126 L (137-145) mmol/L Potassium 3.7 (3.5-5.1) mmol/L Chloride 91 L (98-107) mmol/L Carbon Dioxide 23 (22-30) mmol/L Anion Gap 12 mmol/L BUN 14 (9-20) mg/dL Creatinine 0.76 (0.66-1.25) mg/dL Est GFR (CKD-EPI)AfAm >90 (>60 ml/min/1.73 sqM) Est GFR (CKD-EPI)NonAf >90 (>60 ml/min/1.73 sqM) Glucose 115 H (74-99) mg/dL Lactic Ac Sepsis Rflx Plasma Lactic Acid Thanh 2.3 H* (0.7-2.0) mmol/L Calcium 8.8 (8.4-10.2) mg/dL Total Bilirubin 0.9 (0.2-1.3) mg/dL AST 31 (17-59) U/L ALT 22 (4-49) U/L Alkaline Phosphatase 103 (38-126) U/L C-Reactive Protein 38.8 H (<1.0) mg/dL Total Protein 7.1 (6.3-8.2) g/dL Albumin 4.0 (3.5-5.0) g/dL Influenza Type A (PCR) (Not Detectd) Influenza Type B (PCR) (Not Detectd) RSV (PCR) (Not Detectd) SARS-CoV-2 (PCR) (Not Detectd) 05/29/23 05/29/23 Range/Units 10:44 11:49 WBC (3.8-10.6) k/uL RBC (4.30-5.90) m/uL Hgb (13.0-17.5) gm/dL Hct (39.0-53.0) % MCV (80.0-100.0) fL MCH (25.0-35.0) pg MCHC (31.0-37.0) g/dL RDW (11.5-15.5) % Plt Count (150-450) k/uL MPV Neutrophils % % Lymphocytes % % Monocytes % % Eosinophils % % Basophils % % Neutrophils # (1.3-7.7) k/uL Lymphocytes # (1.0-4.8) k/uL Monocytes # (0-1.0) k/uL Eosinophils # (0-0.7) k/uL Basophils # (0-0.2) k/uL Hypochromasia ESR (0-20) mm/Hr Sodium (137-145) mmol/L Potassium (3.5-5.1) mmol/L Chloride (98-107) mmol/L Carbon Dioxide (22-30) mmol/L Anion Gap mmol/L BUN (9-20) mg/dL Creatinine (0.66-1.25) mg/dL Est GFR (CKD-EPI)AfAm (>60 ml/min/1.73 sqM) Est GFR (CKD-EPI)NonAf (>60 ml/min/1.73 sqM) Glucose (74-99) mg/dL Lactic Ac Sepsis Rflx Y Plasma Lactic Acid Thanh (0.7-2.0) mmol/L Calcium (8.4-10.2) mg/dL Total Bilirubin (0.2-1.3) mg/dL AST (17-59) U/L ALT (4-49) U/L Alkaline Phosphatase (38-126) U/L C-Reactive Protein (<1.0) mg/dL Total Protein (6.3-8.2) g/dL Albumin (3.5-5.0) g/dL Influenza Type A (PCR) Not Detected (Not Detectd) Influenza Type B (PCR) Not Detected (Not Detectd) RSV (PCR) Not Detected (Not Detectd) SARS-CoV-2 (PCR) Not Detected (Not Detectd) - Radiology Data Radiology results: report reviewed, image reviewed Disposition Clinical Impression: Other infective bursitis, left elbow, Hyponatremia, Nicotine dependence Disposition: ADMITTED IP TO THIS [facility] Time of Disposition: 12:03
--- NOTE | 2023-05-29 10:16 | XR ---
EXAMINATION TYPE: XR elbow complete LT DATE OF EXAM: 05/29/2023 COMPARISON: NONE HISTORY: 57-year-old male worsening septic bursitis, complaining of pain and swelling TECHNIQUE: 4 views FINDINGS: Posterior soft tissue swelling is present especially overlying the olecranon and dorsal asp ect of the proximal forearm. No underlying joint effusion. No acute fracture, subluxation, dislocatio n seen. IMPRESSION: Persistent posterior olecranon and dorsal proximal forearm soft tissue swelling. No underlying joint effusion or acute osseous abnormality seen.
[2023-05-29 10:58] LABS: Basophils % (A) 0 %; Eosinophils # (A) 0.1 k/uL (0-0.7); Eosinophils % (A) 1 %; HCT 41.1 % (39.0-53.0); HGB 13.3 gm/dL (13.0-17.5); Hypochromasia Slight; Lymphocytes # (A) 0.5 k/uL (1.0-4.8); Lymphocytes % (A) 3 %; MCH 27.1 pg (25.0-35.0); MCHC 32.3 g/dL (31.0-37.0); Mean Platelet Volume 7.8; Monocytes # (A) 0.5 k/uL (0-1.0); Monocytes % (A) 3 %; Neutrophils # (A) 17.1 k/uL (1.3-7.7); Neutrophils % (A) 92 %; Platelet Count 169 k/uL (150-450); RDW 14.7 % (11.5-15.5); WBC 18.5 k/uL (3.8-10.6)
[2023-05-29 11:11] LABS: ALT 22 U/L (4-49); AST 31 U/L (17-59); African American GFR (CKD) >90 (>60 ml/min/1.73 sqM); Alkaline Phosphatase 103 U/L (38-126); Anion Gap 12 mmol/L; Blood Urea Nitrogen 14 mg/dL (9-20); Calcium 8.8 mg/dL (8.4-10.2); Carbon Dioxide 23 mmol/L (22-30); Chloride 91 mmol/L (98-107); Glucose 115 mg/dL (74-99); Non-African American GFR(CKD) >90 (>60 ml/min/1.73 sqM); Potassium 3.7 mmol/L (3.5-5.1); Sodium 126 mmol/L (137-145); Total Bilirubin 0.9 mg/dL (0.2-1.3); Total Protein 7.1 g/dL (6.3-8.2)
[2023-05-29] MEDS ORDERED: NICOTINE 21MG/24HR PATCH TRANSDERM STA (11:38)
[2023-05-29] MEDS ORDERED: KETOROLAC 15 MG/ML 1 ML VIAL IVP PRN (12:03)
[2023-05-29] MEDS ORDERED: NALOXONE 0.4 MG/ML 1 ML VIAL IV PRN (12:03)
[2023-05-29] MEDS ORDERED: HYDROcodone/APAP 5-325MG 1 EACH TAB PO PRN (12:03)
[2023-05-29] MEDS ORDERED: ONDANSETRON 4 MG/2 ML VIAL IVP PRN (12:03)
[2023-05-29] MEDS ORDERED: diphenhydrAMINE 25 MG CAP PO PRN (12:33)
[2023-05-29] MEDS ORDERED: DICLOFENAC SODIUM TOPICAL PRN (12:33)
[2023-05-29 13:14] LABS: C Reactive Protein 38.8 mg/dL (<1.0)
[2023-05-29] MEDS: RIMEGEPANT SULFATE PO SCH (14:16)
[2023-05-29] MEDS: PATIENT'S OWN (Dextroamphetamine/Amphetamine [Adderall] 20 MG Tablet) PO SCH (14:16)
[2023-05-29] MEDS: HYDROcodone/APAP 10-325MG 1 EACH TAB PO SCH ×3 (14:21→22:45)
[2023-05-29 15:47] LABS: Erythrocyte Sedimentation Rate 72 mm/Hr (0-20)
[2023-05-29] MEDS: GABAPENTIN 300 MG CAP PO SCH ×2 (16:00→22:47)
[2023-05-29] MEDS: ACETAMINOPHEN TAB 325 MG TAB PO PRN (19:01)
--- NOTE | 2023-05-29 22:42 | P.CONS ---
History of Present Illness - Reason for Consult Consult date: 05/29/23 Suspected left elbow septic bursitis Requesting physician: Iliana Reed - Chief Complaint Left elbow and arm pain and swelling x 3 days - History of Present Illness Patient is a 57-year-old male with a past medical history significant for chronic back pain osteomyelitis presenting to the hospital for evaluation of left elbow pain and swelling patient symptom has been going on for about 2 days symptoms started suddenly patient mentioned he woke up with it and denies any history of any trauma he did have significant pain and swelling to the left elbow area and subsequently noticing the swelling redness spreading to the upper arm as well as the forearm patient describing the pain to the elbow area to be sharp throbbing almost 10 out of 10 and severity without any radiation, patient initially presented to hospital yesterday with concern for septic bursitis patient was advised admission to the hospital however the patient refused he received a dose of clindamycin IV and subsequently sent home on oral clindamycin with the patient mention he was unable to tolerate because he was vomiting and subsequently presented back to the hospital with worsening symptoms on presentation to the hospital he did have fever 100.6 degrees for night patient was tachycardic but not hypotensive or hypoxic did have white count of 15.5 with a left shift creatinine was normal lactic acid was elevated liver labs are normal influenza RSV COVID testing was negative patient did have a elbow x-ray persistent posterior olecranon and dorsal proximal forearm soft tissue swelling patient was given cefazolin subsequently switched to vancomycin infectious disease was consulted for further management of antibiotic therapy Review of Systems Positive point and negatives has been mentioned in the HPI, complete review of systems was performed and all other systems are negative Past Medical History Past Medical History: Osteoarthritis (OA) Additional Past Medical History / Comment(s): chronic back pain History of Any Multi-Drug Resistant Organisms: None Reported Past Surgical History: Tonsillectomy Additional Past Surgical History / Comment(s): eye surgery, vasectomy Past Psychological History: No Psychological Hx Reported Smoking Status: Current every day smoker Past Alcohol Use History: Abuse, Daily Past Drug Use History: None Reported Medications and Allergies Home Medications Medication Instructions Recorded Confirmed Type Dextroamphetamine/Amphetamine 20 mg PO BID 12/11/17 05/29/23 History [Adderall] Gabapentin [Neurontin] 300 mg PO TID 12/11/17 05/29/23 History Butalb/APAP/Caff 50-325-40Mg 1 tab PO DAILY 05/29/23 05/29/23 History [Fioricet 50-325-40] Celecoxib [CeleBREX] 200 mg PO BID 05/29/23 05/29/23 History Diclofenac Sodium [Solaraze 3% Gel] 1 applic TOPICAL QID PRN 05/29/23 05/29/23 History Ergocalciferol (Vitamin D2) 1,250 mcg PO MO 05/29/23 05/29/23 History [Drisdol (50,000 Iu)] Folic Acid 1 mg PO DAILY 05/29/23 05/29/23 History HYDROcodone/APAP 10-325MG [[place] 1 tab PO QID 05/29/23 05/29/23 History 10-325] NIFEdipine [Adalat CC] 30 mg PO DAILY 05/29/23 05/29/23 History Rimegepant Sulfate [Nurtec Odt] 75 mg PO Q48H 05/29/23 05/29/23 History Thiamine 100ml/Ml Solution 1 ml INJ DAILY 05/29/23 05/29/23 History diphenhydrAMINE [Benadryl] 25 mg PO BID PRN 05/29/23 05/29/23 History Cephalexin [Keflex] 500 mg PO Q6HR 14 Days #56 cap 06/04/23 Rx Chlorhexidine Gluconate [Hibiclens] 1 applic TOPICAL DIRECTED #118 06/04/23 Rx ml Doxycycline [Vibramycin] 100 mg PO BID 14 Days #28 capsule 06/04/23 Rx Neomycin/Bacitracin/Polymyxinb 1 applic TOPICAL DAILY #15 gm 06/04/23 Rx [Neosporin Ointment] Nicotine 21Mg/24Hr Patch [Habitrol] 1 patch TRANSDERM HS #30 patch 06/04/23 Rx Pantoprazole [Protonix] 40 mg PO DAILY #30 tab 06/04/23 Rx Sennosides-Docusate Sodium 2 each PO HS PRN #0 tab 06/04/23 Rx [Senokot-S] Allergies Allergy/AdvReac Type Severity Reaction Status Date / Time cetirizine HCl [From Zyrtec] Allergy Unknown Verified 05/30/23 17:20 clindamycin Allergy Nausea & Verified 05/30/23 17:20 Vomiting & Diarrhea Physical Exam Vitals: Vital Signs Temp Pulse Resp BP Pulse Ox 05/29/23 13:40 98 F 91 16 126/74 97 05/29/23 09:17 100.6 F H 120 H 20 114/68 99 Intake and Output 05/28/23 05/29/23 05/29/23 22:59 06:59 14:59 Other: Weight 68.039 kg GENERAL DESCRIPTION: Middle-aged male lying in bed, no distress. No tachypnea or accessory muscle of respiration use. HEENT: Shows Pallor , no scleral icterus. Oral mucous membrane is dry. No pharyngeal erythema or thrush NECK: Trachea central, no thyromegaly. LUNGS: Unlabored breathing. Clear to auscultation anteriorly. No wheeze or crackle. HEART: S1, S2, regular rate and rhythm. No loud murmur ABDOMEN: Soft, no tenderness , guarding or rigidity, no organomegaly EXTREMITIES: Left elbow Arms are significantly swollen red warm and tender to touch SKIN: No rash, no masses palpable. NEUROLOGICAL: The patient is awake, alert, oriented x3, mood and affect normal. Results CBC & Chem 7: 05/31/23 06:12 06/04/23 05:45 Labs: Abnormal Lab Results - Last 24 Hours (Table) 05/29/23 05/29/23 05/29/23 Range/Units 10:44 10:44 10:44 WBC 18.5 H (3.8-10.6) k/uL Neutrophils # 17.1 H (1.3-7.7) k/uL Lymphocytes # 0.5 L (1.0-4.8) k/uL Sodium 126 L (137-145) mmol/L Chloride 91 L (98-107) mmol/L Glucose 115 H (74-99) mg/dL Plasma Lactic Acid Thanh 2.3 H* (0.7-2.0) mmol/L C-Reactive Protein 38.8 H (<1.0) mg/dL Assessment and Plan (1) Other infective bursitis, left elbow Status: Acute Code(s): M71.122 - OTHER INFECTIVE BURSITIS, LEFT ELBOW SNOMED Code(s): 661554219 (2) Sepsis Status: Acute Code(s): A41.9 - SEPSIS, UNSPECIFIED ORGANISM SNOMED Code(s): 82024819 Plan: 1patient presented to hospital with sepsis in this patient who did have fever elevated white count source is left septic olecranon bursitis likely from a gram-positive skin adali such as strep or Staph aureus 2-elizabeth the area of the redness 3-await orthopedic surgery evaluation for aspiration versus bursectomy and deep culture 4-vancomycin pharmacy to dose target trough of 15 while watching kidney function and Vanco trough closely We will follow on clinical condition and cultures to further adjust medication if needed Thank you for this consultation we will follow the patient along with you Dictation was produced using [employer] dictation software. please excuse any grammatical, word or spelling errors. Time with Patient: Greater than 30
[2023-05-29] MEDS: VANCOMYCIN 1,250 MG in SODIUM CHLORIDE 0.9% 250 ML IVPB SCH (22:47)
[2023-05-30] MEDS: PATIENT'S OWN (Dextroamphetamine/Amphetamine [Adderall] 20 MG Tablet) PO SCH ×2 (01:11→14:32)
[2023-05-30] MEDS: MORPHINE SULFATE 4 MG/ML SYRINGE IV PRN (02:02)
[2023-05-30] MEDS: ACETAMINOPHEN TAB 325 MG TAB PO PRN (02:15)
[2023-05-30] MEDS: VANCOMYCIN 1,250 MG in SODIUM CHLORIDE 0.9% 250 ML IVPB SCH ×2 (04:33→14:36)
[2023-05-30] MEDS: NIFEdipine XL 30 MG TAB.ER.24 PO SCH (08:32)
[2023-05-30] MEDS: GABAPENTIN 300 MG CAP PO SCH ×3 (08:32→21:14)
[2023-05-30] MEDS: BUTALB/APAP/CAFF 50-325-40MG TAB PO SCH (08:32)
[2023-05-30] MEDS: HYDROcodone/APAP 10-325MG 1 EACH TAB PO SCH ×4 (08:32→21:14)
[2023-05-30] MEDS: FOLIC ACID 1 MG TAB PO SCH (08:32)
[2023-05-30] MEDS: NICOTINE 21MG/24HR PATCH TRANSDERM SCH (08:33)
[2023-05-30] MEDS: THIAMINE 100 MG/ML 2 ML VIAL IM SCH (08:36)
[2023-05-30] MEDS: MELOXICAM 7.5 MG TAB PO SCH (09:55)
--- NOTE | 2023-05-30 11:31 | P.HPIM ---
History of Present Illness H&P Date: 05/30/23 Chief Complaint: Left elbow injury His is a pleasant 57-year-old gentleman with past medical history significant for osteoarthritis, chronic back pain, ongoing nicotine dependence, prior alcohol abuse and multiple other medical issues presented to the ER with left elbow pain, edema,redness. Patient reports possibly injured it while sleepwalking, denies trauma. Originally seen on the in the ER, received IV clindamycin, recommended inpatient admission for IV antibiotics but patient declined was discharged on oral clindamycin. Patient had difficulty tolerating oral antibiotics, with nausea and vomiting with worsening left upper extremity,returned to the ER on 05/29/2023 and admitted. On admission, tachycardic, normotensive, maintaining O2 sats in the high 90s on room air with Temperature 100.6. T-max 103.1, WBC 18.5, CRP 38.8, lactic acid 2.3 -decreased to 0.8 with IV fluid hydration. Blood cultures in progress. Hemoglobin 13.3, platelets 169 . sodium 126, potassium 3.7, bicarb 23, BUN 14, creatinine 0.76 , glucose 1:15.serology did not detect influenza type A/B/RSV/COVID. Elbow x-ray reported persistent posterior olecranon and dorsal proximal forearm soft tissue swelling, no underlying joint effusion or acute osseous abnormality seen. Received cefazolin.Evaluated by infectious disease with antibiotics further adjusted to vancomycin. Orthopedic surgery consulted with I and D scheduled. Pain better controlled. Denies chest pain, palpitations or shortness of breath. Repeat BMP pending. Review of Systems ROS Statement: Those systems with pertinent positive or pertinent negative responses have been documented in the HPI. ROS Other: All systems not noted in ROS Statement are negative. Past Medical History Past Medical History: Osteoarthritis (OA) Additional Past Medical History / Comment(s): chronic back pain History of Any Multi-Drug Resistant Organisms: None Reported Past Surgical History: Tonsillectomy Additional Past Surgical History / Comment(s): eye surgery, vasectomy Past Psychological History: No Psychological Hx Reported Smoking Status: Current every day smoker Past Alcohol Use History: Abuse, Daily Past Drug Use History: None Reported Medications and Allergies Home Medications Medication Instructions Recorded Confirmed Type Dextroamphetamine/Amphetamine 20 mg PO BID 12/11/17 05/29/23 History [Adderall] Gabapentin [Neurontin] 300 mg PO TID 12/11/17 05/29/23 History Butalb/APAP/Caff 50-325-40Mg 1 tab PO DAILY 05/29/23 05/29/23 History [Fioricet 50-325-40] Celecoxib [CeleBREX] 200 mg PO BID 05/29/23 05/29/23 History Diclofenac Sodium [Solaraze 3% Gel] 1 applic TOPICAL QID PRN 05/29/23 05/29/23 History Ergocalciferol (Vitamin D2) 1,250 mcg PO MO 05/29/23 05/29/23 History [Drisdol (50,000 Iu)] Folic Acid 1 mg PO DAILY 05/29/23 05/29/23 History HYDROcodone/APAP 10-325MG [[place] 1 tab PO QID 05/29/23 05/29/23 History 10-325] NIFEdipine [Adalat CC] 30 mg PO DAILY 05/29/23 05/29/23 History Rimegepant Sulfate [Nurtec Odt] 75 mg PO Q48H 05/29/23 05/29/23 History Thiamine 100ml/Ml Solution 1 ml INJ DAILY 05/29/23 05/29/23 History diphenhydrAMINE [Benadryl] 25 mg PO BID PRN 05/29/23 05/29/23 History Allergies Allergy/AdvReac Type Severity Reaction Status Date / Time cetirizine HCl [From Zyrtec] Allergy Unknown Verified 05/29/23 09:19 clindamycin Allergy Nausea & Verified 05/29/23 12:27 Vomiting & Diarrhea Physical Exam Vitals: Vital Signs Temp Pulse Pulse Resp BP BP Pulse Ox 05/30/23 08:00 103.1 F H 99 16 139/72 98 05/30/23 04:40 99.6 F 05/30/23 02:00 102.6 F H 111 H 16 144/74 98 05/29/23 21:15 99.0 F 90 18 130/70 100 05/29/23 21:08 98.7 F 98 18 129/65 98 05/29/23 18:57 100.8 F H 05/29/23 17:53 100.3 F H 05/29/23 13:40 98 F 91 16 126/74 97 Intake and Output 05/29/23 05/30/23 05/30/23 22:59 06:59 14:59 Other: # Voids 3 Weight 68.039 kg PHYSICAL EXAM: VITAL SIGNS: As above GENERAL: Alert and oriented 3, Sitting up in bed, no acute distress HEENT: Conjunctivae normal. eyes normal. NECK: No JVD. No thyroid enlargement. No LNs CARDIOVASCULAR: S1, S2 regular.. No murmur RESPIRATION: Breath sounds diminished in the bases. No rhonchi or crackles. No b ronchial breathing. ABDOMEN: Soft, nontender . No guarding. no masses palpable. No ascites, No hep atosplenomegaly.Bowel sounds heard. EXTREMITIES: Left elbow edematous, warmth with redness extending up arm as well as down the forearm, positive radial pulse NERVOUS SYSTEM: Cranial N 2-12 grossly normal. Moves all 4 limbs. Diffuse weakness No focal deficits. Strength and sensation grossly intact.. Skin: Warm and dry, scrapes/scabs on the second third digits of left hand. Results CBC & Chem 7: 05/29/23 10:44 05/29/23 10:44 Labs: Abnormal Lab Results - Last 24 Hours (Table) 05/29/23 05/29/23 05/29/23 Range/Units 10:44 10:44 10:44 WBC 18.5 H (3.8-10.6) k/uL Neutrophils # 17.1 H (1.3-7.7) k/uL Lymphocytes # 0.5 L (1.0-4.8) k/uL ESR 72 H (0-20) mm/Hr Sodium 126 L (137-145) mmol/L Chloride 91 L (98-107) mmol/L Glucose 115 H (74-99) mg/dL Plasma Lactic Acid Thanh 2.3 H* (0.7-2.0) mmol/L C-Reactive Protein 38.8 H (<1.0) mg/dL Thrombosis Risk Factor Assmnt - Choose All That Apply Any of the Below Risk Factors Present?: No Other Risk Factors: Yes Each Risk Factor Represents 2 Points: Age 61-74 years Other congenital or acquired thrombophilia - If yes, enter type in comment: Yes Thrombosis Risk Factor Assessment Total Risk Factor Score: 2 Thrombosis Risk Factor Assessment Level: Low Risk Assessment and Plan Assessment: Sepsis secondary to left septic olecranon bursitis Fevers, secondary to the above, blood cultures pending Lactic acidosis Leukocytosis Hyponatremia Osteoarthritis Chronic back pain Ongoing nicotine dependence History of prior alcohol abuse, uses thiamine 100 mg IM daily Plan: Continue on current medication regime ,monitoring and symptomatic treatment. Pain management, IV fluid hydration. I&D with deep culture pending. IV antibiotics as per ID. Close monitoring of renal function with BMP pending. Smoking cessation reinforced, nicotine patch ordered. The impression and plan of care has been dictated as directed. : I performed a history and examination of this patient, discussed the same with the dictator. I agree with the dictator's note ,documented as a scribe. Any additional findings or plans will be noted.
--- NOTE | 2023-05-30 13:03 | P.CNOR ---
History of Present Illness - HPI Consult date: 05/30/23 History of present illness: This is a 57-year-old male who is admitted for a left elbow infection. Patient states that this started on 05/26/2023 with swelling and pain in the left elbow. Patient denies any injury. Patient states that he tried a course of oral antibiotics, but his symptoms continue to worsen so he presented to the [facility] ency room. Patient admits to fevers over the last couple of days. Patient states that he is [id number]. Patient denies any numbness, weakness or tingling. Review of Systems See HPI. Past Medical History Past Medical History: Osteoarthritis (OA) Additional Past Medical History / Comment(s): chronic back pain History of Any Multi-Drug Resistant Organisms: None Reported Past Surgical History: Tonsillectomy Additional Past Surgical History / Comment(s): eye surgery, vasectomy Past Psychological History: No Psychological Hx Reported Smoking Status: Current every day smoker Past Alcohol Use History: Abuse, Daily Past Drug Use History: None Reported Medications and Allergies Home Medications Medication Instructions Recorded Confirmed Type Dextroamphetamine/Amphetamine 20 mg PO BID 12/11/17 05/29/23 History [Adderall] Gabapentin [Neurontin] 300 mg PO TID 12/11/17 05/29/23 History Butalb/APAP/Caff 50-325-40Mg 1 tab PO DAILY 05/29/23 05/29/23 History [Fioricet 50-325-40] Celecoxib [CeleBREX] 200 mg PO BID 05/29/23 05/29/23 History Diclofenac Sodium [Solaraze 3% Gel] 1 applic TOPICAL QID PRN 05/29/23 05/29/23 History Ergocalciferol (Vitamin D2) 1,250 mcg PO MO 05/29/23 05/29/23 History [Drisdol (50,000 Iu)] Folic Acid 1 mg PO DAILY 05/29/23 05/29/23 History HYDROcodone/APAP 10-325MG [[place] 1 tab PO QID 05/29/23 05/29/23 History 10-325] NIFEdipine [Adalat CC] 30 mg PO DAILY 05/29/23 05/29/23 History Rimegepant Sulfate [Nurtec Odt] 75 mg PO Q48H 05/29/23 05/29/23 History Thiamine 100ml/Ml Solution 1 ml INJ DAILY 05/29/23 05/29/23 History diphenhydrAMINE [Benadryl] 25 mg PO BID PRN 05/29/23 05/29/23 History Allergies Allergy/AdvReac Type Severity Reaction Status Date / Time cetirizine HCl [From Zyrtec] Allergy Unknown Verified 05/29/23 09:19 clindamycin Allergy Nausea & Verified 05/29/23 12:27 Vomiting & Diarrhea Physical Examination On exam patient is resting comfortably in bed in no acute distress. Patient is alert and oriented 3. There is swelling and significant erythema over the left elbow and forearm. Patient has good active flexion and extension of the left elbow, but this is somewhat uncomfortable. There is tenderness to palpation over the olecranon process. Skin appears intact. The left upper extremity is warm and well perfused. Patient has full range of motion of the left wrist and hand. Neurovascular status and circulatory status are intact. Results X-rays of the left elbow are reviewed and are negative. - Labs Labs: Abnormal Lab Results - Last 24 Hours (Table) 05/29/23 05/29/23 Range/Units 10:44 10:44 ESR 72 H (0-20) mm/Hr C-Reactive Protein 38.8 H (<1.0) mg/dL H & H 05/29/23 Range/Units 10:44 Hgb 13.3 (13.0-17.5) gm/dL Hct 41.1 (39.0-53.0) % Result Diagrams: 05/29/23 10:44 05/29/23 10:44 Assessment and Plan (1) Left elbow pain Current Visit: Yes Status: Acute Code(s): M25.522 - PAIN IN LEFT ELBOW SNOMED Code(s): 35960545 (2) Other infective bursitis, left elbow Current Visit: Yes Status: Acute Code(s): M71.122 - OTHER INFECTIVE BURSITIS, LEFT ELBOW SNOMED Code(s): 684431809 Plan: 1. An MRI of the left elbow is ordered today. 2. Patient is NPO. 3. Planning for I&D of the left elbow later today pending MRI results and patien t consent.
[2023-05-30] MEDS: PANTOPRAZOLE 40 MG/10 ML VIAL IVP SCH (14:35)
[2023-05-30] MEDS ORDERED: LACTATED RINGERS 1,000 ML IV ONE ×2 (17:15→19:14)
--- NOTE | 2023-05-30 17:26 | MR ---
EXAMINATION TYPE: MR elbow LT wo/w con DATE OF EXAM: 05/30/2023 4:55 PM CLINICAL INDICATION:Male, 57 years old with history of Elbow infection; PHH, Left elbow infection. Pa in and swelling. No trauma. COMPARISON: 05/29/2023.. TECHNIQUE: Multiplanar multi-sequence imaging was performed of the elbow joint. No gadolinium given. FINDINGS: Fluid collection over the olecranon process measuring up to 4.2 cm x 2.9 cm with surrounding high T2 signal fat stranding. Suspected enlarged lymph node is seen along the medial aspect measuring up to 1 0 mm in short axis. Ligaments and tendons: The common extensor tendon has intermediate T2 signal intensity with in it. T he tendon remains intact. The lateral ulnar collateral ligament, annular ligament, and lateral colla teral ligament are intact. The common flexor tendon, biceps tendon, brachialis tendon, and triceps t endon are within normal limits. Osseous structures: Bone marrow is intact on T1 and T2-weighted signals. Physiologic joint effusion o nly. No evidence for septic arthritis. IMPRESSION: 1. Fluid collection posterior to the olecranon process suspicious for abscess versus infected bursa. There is surrounding inflammation/cellulitis. Consider aspiration. 2. No evidence for osteomyelitis. 3. Suspected reactive lymph node on the medial aspect of the arm. 4. Mild lateral tendinosis of the common extensor tendons.
[2023-05-30] MEDS ORDERED: HYDROmorphone 1 MG/ML 1 ML SYRINGE IVP PRN (17:30)
[2023-05-30] MEDS ORDERED: HYDROmorphone 0.5 MG/0.5 ML SYRINGE IVP PRN ×2 (17:30)
[2023-05-30] MEDS ORDERED: SENNOSIDES-DOCUSATE SODIUM 1 EACH TAB PO PRN (17:30)
--- NOTE | 2023-05-30 17:47 | P.PN ---
Subjective Progress Note Date: 05/30/23 Principal diagnosis: Reason for follow-up with sepsis and left olecranon septic bursitis Patient is a 57-year-old male with a past medical history significant for chronic back pain osteomyelitis presenting to the hospital for evaluation of left elbow pain and swelling patient symptom has been going on for about 2 days before presentation to the hospital patient has been diagnosed with sepsis secondary to septic left olecranon bursitis. On today's evaluation that is 05/30/2023, the patient continues to be afebrile patient is breathing comfortably on room air, no need for supplemental oxygen, patient denies any chest pain or cough no nausea no vomiting and no diarrhea has been reported, patient mention pain to the left elbow controlled with the pain medication. No new labs has been obtained today cultures are currently pending Objective - Vital Signs Vital signs: Vital Signs Temp 103.1 F H 05/30/23 08:00 Pulse 99 05/30/23 08:00 Resp 16 05/30/23 08:00 BP 139/72 05/30/23 08:00 Pulse Ox 98 05/30/23 08:00 FiO2 Intake & Output 05/29/23 05/30/23 05/30/23 18:59 06:59 18:59 Weight 68.039 kg 68.039 kg Other: # Voids 3 - Exam GENERAL DESCRIPTION: Middle-age male lying in bed in no distress RESPIRATORY SYSTEM: Unlabored breathing , decreased breath sounds at bases HEART: S1 S2 regular rate and rhythm , ABDOMEN: Soft , no tenderness EXTREMITIES: Left elbow upper extremity did have significant swelling and redness no drainage - Labs CBC & Chem 7: 05/29/23 10:44 05/29/23 10:44 Labs: Abnormal Lab Results - Last 24 Hours (Table) 05/29/23 05/29/23 05/29/23 Range/Units 10:44 10:44 10:44 WBC 18.5 H (3.8-10.6) k/uL Neutrophils # 17.1 H (1.3-7.7) k/uL Lymphocytes # 0.5 L (1.0-4.8) k/uL ESR 72 H (0-20) mm/Hr Sodium 126 L (137-145) mmol/L Chloride 91 L (98-107) mmol/L Glucose 115 H (74-99) mg/dL Plasma Lactic Acid Thanh 2.3 H* (0.7-2.0) mmol/L C-Reactive Protein 38.8 H (<1.0) mg/dL Assessment and Plan (1) Sepsis Current Visit: Yes Status: Acute Code(s): A41.9 - SEPSIS, UNSPECIFIED ORGANISM SNOMED Code(s): 23510991 (2) Other infective bursitis, left elbow Current Visit: Yes Status: Acute Code(s): M71.122 - OTHER INFECTIVE BURS ITIS, LEFT ELBOW SNOMED Code(s): 721085297 Plan: 1patient presented to hospital with sepsis in this patient who did have fever elevated white count source is left septic olecranon bursitis likely from a gram-positive skin adali such as strep or Staph aureus 2--patient has been eval by orthopedics MRI has been ordered patient will benefit from bursectomy and deep culture 3-patient to continue vancomycin pharmacy to dose target trough of 15 while watching kidney function and Vanco trough closely Multiple questions answered Dictation was produced using [employer] dictation software. please excuse any grammatical, word or spelling errors. Time with Patient: Less than 30
[2023-05-30] MEDS ORDERED: HYDROmorphone (PF) 1 MG/ML ONE (18:18)
[2023-05-30] MEDS ORDERED: PHENYLEPHRINE 10 MG/ML VIAL ONE (18:18)
[2023-05-30] MEDS ORDERED: KETAMINE HCL IN 0.9 % NACL 50 MG/5 ML SYRINGE ONE (18:18)
[2023-05-30] MEDS ORDERED: fentaNYL (PF) 50 MCG/ML 2 ML AMP ONE (18:18)
[2023-05-30] MEDS ORDERED: LIDOCAINE 1% INJ 10MG/ML (20 ML MDV) ONE (18:18)
[2023-05-30] MEDS ORDERED: GLYCOPYRROLATE 0.2 MG/ML 2 ML VIAL ONE (18:18)
[2023-05-30] MEDS ORDERED: PROPOFOL 10 MG/ML 20 ML VIAL IV ONE (18:18)
[2023-05-30] MEDS ORDERED: MIDAZOLAM 2 MG/2 ML VIAL ONE (18:18)
[2023-05-30] MEDS ORDERED: SUCCINYLCHOLINE CHLORIDE 200 MG/10 ML VIAL IV ONE (18:18)
[2023-05-30] MEDS ORDERED: ONDANSETRON 4 MG/2 ML VIAL IVP ONE (18:22)
[2023-05-30] MEDS ORDERED: DEXAMETHASONE SOD PHOSPHATE 4 MG/ML 1 ML VIAL IVP ONE (18:22)
--- NOTE | 2023-05-30 19:05 | P.OP ---
Date of Procedure: 05/30/23 Preoperative Diagnosis: Septic olecranon bursitis left elbow Postoperative Diagnosis: Septic olecranon bursitis left elbow Procedure(s) Performed: Incision and drainage left elbow and forearm Anesthesia: DENA Surgeon: Toro Sesay Estimated Blood Loss (ml): 10 Pathology: other (Cultures 2) Condition: stable Disposition: PACU Indications for Procedure: This is a 57-year-old gentleman that presented to the hospital with pain and swelling in his left upper extremity. Patient has a significant white count and a fever consistent with a septic olecranon bursitis. He has significant redness and swelling in this left upper extremity. An MRI was performed which confirmed a fluid collection in the's olecranon area of his left forearm consistent with septic bursitis. After discussing the surgical and nonsurgical treatment options with him at length, I recommended an incision and drainage of this olecranon bursa as well as his forearm. Informed consent was obtained. Operative Findings: The operative findings are consistent with septic olecranon bursa. Description of Procedure: The patient was seen and evaluated in the preoperative area. Surgical site was marked. The patient was then brought to the operating room and given a general anesthetic by the anesthesia department. Tourniquet was placed on left upper arm and the left upper extremities and prepped and draped in the usual sterile fashion. [place] timeout was then performed which confirmed the patient's name, surgical site, ALLERGIES, and consent. The left arm was then elevated but not exsanguinated, and the tourniquet was inflated to 250 mmHg. An incision was then made on the posterior aspect of the elbow from olecranon area. A small amount of purulent fluid was then expressed and this was cultured 2. There was a large amount of clear fluid Thorough irrigation with antibiotic solution feel pulsatile lavage was performed. Attention was then directed to the medial side of the forearm where there was redness and induration. This again was sharply incised and a small amount of purulent material was expressed as well as a large amount of clear fluid from this area as well. Thorough irrigation was performed. After all areas were explored and a thorough irrigation was performed, the incisions were closed with 3-0 Vicryl followed by hadley for the skin. Sterile dressings were applied and patient was transferred recovery room stable condition.
[2023-05-30] MEDS ORDERED: MIDAZOLAM 2 MG/2 ML VIAL IVP ONE ×2 (19:44→19:57)
[2023-05-31] MEDS: VANCOMYCIN 1,250 MG in SODIUM CHLORIDE 0.9% 250 ML IVPB SCH ×2 (00:24→11:08)
[2023-05-31] MEDS ORDERED: VANCOMYCIN TROUGH DUE 1 EACH MISC MISCELLANE ONE (06:00)
[2023-05-31] MEDS: PATIENT'S OWN (Dextroamphetamine/Amphetamine [Adderall] 20 MG Tablet) PO SCH ×2 (10:07→15:14)
[2023-05-31] MEDS: PANTOPRAZOLE 40 MG/10 ML VIAL IVP SCH (10:50)
[2023-05-31] MEDS: HYDROcodone/APAP 10-325MG 1 EACH TAB PO SCH ×4 (10:51→21:37)
[2023-05-31] MEDS: NIFEdipine XL 30 MG TAB.ER.24 PO SCH (10:51)
[2023-05-31] MEDS: BUTALB/APAP/CAFF 50-325-40MG TAB PO SCH (10:51)
[2023-05-31] MEDS: MELOXICAM 7.5 MG TAB PO SCH (10:51)
[2023-05-31] MEDS: FOLIC ACID 1 MG TAB PO SCH (10:51)
[2023-05-31] MEDS: GABAPENTIN 300 MG CAP PO SCH ×3 (10:52→21:38)
[2023-05-31] MEDS: THIAMINE 100 MG/ML 2 ML VIAL IM SCH (11:08)
[2023-05-31 11:15] LABS: Basophils # (A) 0.02 X 10*3/uL (0.00-0.10); Basophils % (A) 0.2 %; Eosinophils # (A) 0.01 X 10*3/uL (0.04-0.35); Eosinophils % (A) 0.1 %; HCT 31.8 % (39.6-50.0); HGB 10.2 g/dL (13.0-17.0); Lymphocytes # (A) 0.82 X 10*3/uL (0.90-5.00); Lymphocytes % (A) 8.7 %; MCH 26.2 pg (27.0-32.0); MCHC 32.1 g/dL (32.0-37.0); MCV 81.5 FL (80.0-97.0); Mean Platelet Volume 10.5 FL (9.5-12.2); Monocytes # (A) 0.91 X 10*3/uL (0.20-1.00); Monocytes % (A) 9.6 %; NRBC Per 100 WBC 0 X 10*3/uL (0.00-0.01); Neutrophils # (A) 7.63 X 10*3/uL (1.80-7.70); Neutrophils % (A) 80.6 %; Platelet Count 141 X 10*3/uL (140-440); RDW 14.9 % (11.5-14.5); WBC 9.47 X 10*3/uL (4.50-10.00)
[2023-05-31 11:35] LABS: BUN/Creat Ratio 11.29 Ratio (12.00-20.00); Blood Urea Nitrogen 7.9 mg/dL (9.0-27.0); Calcium 7.8 mg/dL (8.7-10.3); Carbon Dioxide 23.4 mmol/L (21.6-31.8); Chloride 97 mmol/L (96-109); Glucose 147 mg/dL (70-110); Sodium 132 mmol/L (135-145)
[2023-05-31] MEDS: VANCOMYCIN 1,500 MG in SODIUM CHLORIDE 0.9% 500 ML 500 ML IVPB SCH ×2 (11:56→21:37)
--- NOTE | 2023-05-31 13:53 | P.PN ---
Subjective Progress Note Date: 05/31/23 This is a 57-year-old male who is status post incision and drainage of the left elbow and forearm. This is postoperative day #1 and patient is seen and evaluated at bedside today. Patient states that his pain is well controlled and he has noticed mild drainage on his bandages. Patient denies any new complaints today. Objective - Vital Signs Vital signs: Vital Signs Temp 99.3 F 05/31/23 10:37 Pulse 98 05/31/23 10:37 Resp 18 05/31/23 10:37 BP 125/64 05/31/23 10:37 Pulse Ox 99 05/31/23 10:37 FiO2 Intake & Output 05/30/23 05/31/23 05/31/23 18:59 06:59 18:59 Intake Total 800 200 Output Total 10 Balance 800 190 Intake: IV 800 200 Output: Estimated Blood Loss 10 Other: # Voids 2 - Exam On exam patient is resting comfortably in bed in no acute distress. Patient is alert and oriented 3. Dressing is removed revealing incisions that are clean, dry and intact. There is mild to moderate swelling present. Mild erythema. Left upper extremity is warm and well perfused. Neurovascular status and circulatory status are intact. - Labs CBC & Chem 7: 05/31/23 06:12 05/31/23 06:12 Labs: Abnormal Lab Results - Last 24 Hours (Table) 05/31/23 05/31/23 Range/Units 06:12 06:12 RBC 3.90 L (4.40-5.60) X 10*6/uL Hgb 10.2 L (13.0-17.0) g/dL Hct 31.8 L (39.6-50.0) % MCH 26.2 L (27.0-32.0) pg RDW 14.9 H (11.5-14.5) % Immature Gran # 0.08 H (0.00-0.04) X 10*3/uL Lymphocytes # 0.82 L (0.90-5.00) X 10*3/uL Eosinophils # 0.01 L (0.04-0.35) X 10*3/uL Sodium 132 L (135-145) mmol/L Potassium 3.0 L (3.5-5.5) mmol/L BUN 7.9 L (9.0-27.0) mg/dL BUN/Creatinine Ratio 11.29 L (12.00-20.00) Ratio Glucose 147 H (70-110) mg/dL Calcium 7.8 L (8.7-10.3) mg/dL Microbiology - Last 24 Hours (Table) 05/29/23 10:40 Blood Culture - Preliminary Blood 05/29/23 10:25 Blood Culture - Preliminary Blood Assessment and Plan (1) Left elbow pain Current Visit: Yes Status: Acute Code(s): M25.522 - PAIN IN LEFT ELBOW SNOMED Code(s): 56365058 (2) Other infective bursitis, left elbow Current Visit: Yes Status: Acute Code(s): M71.122 - OTHER INFECTIVE BURSITIS, LEFT ELBOW SNOMED Code(s): 235647126 Plan: An MRI report of the left elbow dated 05/30/2023 reveals: 1. Fluid collection posterior to the olecranon process suspicious for abscess versus infected bursa. There is surrounding inflammation/cellulitis. Consider aspiration. 2. No evidence for osteomyelitis. 3. Suspected reactive lymph node on the medial aspect of the arm. 4. Mild lateral tendinosis of the common extensor tendons. 1. Daily dressing changes. [place] to be removed in 10-14 days. 2. IV antibiotics per infectious disease. 3. We will continue to follow.
--- NOTE | 2023-05-31 14:33 | P.PN ---
Subjective Progress Note Date: 05/31/23 Principal diagnosis: Reason for follow-up with sepsis and left olecranon septic bursitis Patient is a 57-year-old male with a past medical history significant for chronic back pain osteomyelitis presenting to the hospital for evaluation of left elbow pain and swelling patient symptom has been going on for about 2 days before presentation to the hospital patient has been diagnosed with sepsis secondary to septic left olecranon bursitis. Patient is status post Incision and drainage left elbow and forearm for septic olecranon bursitis on 05/30/2023 On today's evaluation that is 05/31/2023 the patient denies having any fever or any chills, the patient is breathing comfortably on room air, patient denies chest pain cough, the patient denies having any abdominal pain no nausea vomiting and no diarrhea, the patient pain to the left upper extremity has decreased in intensity Patient white count normalized to 9.47, creatinine 0.7 cultures are pending Objective - Vital Signs Vital signs: Vital Signs Temp 99.3 F 05/31/23 10:37 Pulse 98 05/31/23 10:37 Resp 18 05/31/23 10:37 BP 125/64 05/31/23 10:37 Pulse Ox 99 05/31/23 10:37 FiO2 Intake & Output 05/30/23 05/31/23 05/31/23 18:59 06:59 18:59 Intake Total 800 200 Output Total 10 Balance 800 190 Intake: IV 800 200 Output: Estimated Blood Loss 10 Other: # Voids 2 - Exam GENERAL DESCRIPTION: Middle-age male lying in bed in no distress RESPIRATORY SYSTEM: Unlabored breathing , decreased breath sounds at bases HEART: S1 S2 regular rate and rhythm , ABDOMEN: Soft , no tenderness EXTREMITIES: Left elbow is currently dressed no drainage on the dressing - Labs CBC & Chem 7: 05/31/23 06:12 05/31/23 06:12 Labs: Microbiology - Last 24 Hours (Table) 05/29/23 10:40 Blood Culture - Preliminary Blood 05/29/23 10:25 Blood Culture - Preliminary Blood Assessment and Plan (1) Sepsis Current Visit: Yes Status: Acute Code(s): A41.9 - SEPSIS, UNSPECIFIED ORGANISM SNOMED Code(s): 18223165 (2) Other infective bursitis, left elbow Current Visit: Yes Status: Acute Code(s): M71.122 - OTHER INFECTIVE BURSITIS, LEFT ELBOW SNOMED Code(s): 959274095 Plan: 1patient presented to hospital with sepsis in this patient who did have fever elevated white count source is left septic olecranon bursitis likely from a gram-positive skin adali such as strep or Staph aureus 2--patient is status post Incision and drainage left elbow and forearm for septic olecranon bursitis on 05/30/2023, deep cultures currently pending 3-patient to continue vancomycin pharmacy to dose target trough of 15 while watching kidney function, will benefit from a short course of IV antibiotic on discharge because of his extensive infection discussed with the outpatient case manager Dictation was produced using [employer] dictation software. please excuse any grammatical, word or spelling errors. Time with Patient: Less than 30
[2023-05-31] MEDS: RIMEGEPANT SULFATE PO SCH (15:13)
[2023-05-31] MEDS: NICOTINE 21MG/24HR PATCH TRANSDERM SCH ×2 (15:13→21:42)
--- NOTE | 2023-05-31 17:04 | P.PN ---
Subjective Progress Note Date: 05/31/23 H&P Date: 05/30/23 Chief Complaint: Left elbow injury His is a pleasant 57-year-old gentleman with past medical history significant for osteoarthritis, chronic back pain, ongoing nicotine dependence, prior alcohol abuse and multiple other medical issues presented to the ER with left elbow pain, edema,redness. Patient reports possibly injured it while sl eepwalking, denies trauma. Originally seen on the in the ER, received IV clindamycin, recommended inpatient admission for IV antibiotics but patient declined was discharged on oral clindamycin. Patient had difficulty tolerating oral antibiotics, with nausea and vomiting with worsening left upper extremity,returned to the ER on 05/29/2023 and admitted. On admission, tachycardic, normotensive, maintaining O2 sats in the high 90s on room air with Temperature 100.6. T-max 103.1, WBC 18.5, CRP 38.8, lactic acid 2.3 -decreased to 0.8 with IV fluid hydration. Blood cultures in progress. Hemoglobin 13.3, platelets 169 . sodium 126, potassium 3.7, bicarb 23, BUN 14, creatinine 0.76 , glucose 1:15.serology did not detect influenza type A/B/RSV/COVID. Elbow x-ray reported persistent posterior olecranon and dorsal proximal forearm soft tissue swelling, no underlying joint effusion or acute osseous abnormality seen. Received cefazolin.Evaluated by infectious disease with antibiotics further adjusted to vancomycin. Orthopedic surgery consulted with I and D scheduled. Pain better controlled. Denies chest pain, palpitations or shortness of breath. Repeat BMP pending. 05/31/2023 MRI reported no evidence of osteomyelitis, suspected reactive lymph node of the medial aspect of the arm, fluid collection posterior to the olecranon process suspicious for abscess versus infected bursa, surrounding inflammation/cellulitis. Status post I&D of the elbow and the forearm, postop day #1. Tolerated procedure well. Cultures pending. Maintained on IV antibiotics of vancomycin. Renal function stable. Afebrile, T-max 102.3, WBC has normalized. Pain currently controlled. Hungry asking for diet advancement. Denies nausea vomiting or diarrhea. Denies any chest pain, palpitations or shortness of breath. 18 O2 sats in the high 90s on room air. Objective - Vital Signs Vital signs: Vital Signs Temp 98.4 F 05/30/23 19:14 Pulse 111 H 05/30/23 19:45 Resp 16 05/30/23 19:45 BP 109/69 05/30/23 19:45 Pulse Ox 96 05/30/23 19:45 FiO2 Intake & Output 05/30/23 05/31/23 05/31/23 18:59 06:59 18:59 Intake Total 800 200 Output Total 10 Balance 800 190 Intake: IV 800 200 Output: Estimated Blood Loss 10 Other: # Voids 2 - Exam PHYSICAL EXAM: VITAL SIGNS: As above GENERAL: Alert and oriented 3, Sitting up in bed, no acute distress HEENT: Normocephalic ,Conjunctivae normal. eyes normal. MMM. NECK: Supple, No JVD. CARDIOVASCULAR: S1, S2 regular.. No murmur RESPIRATION: Unlabored, equal air entry, bilateral bases diminished. ABDOMEN: Soft, nondistended, nontender . No guarding. +BS. EXTREMITIES: Left forearm/elbow dressing with serous drainage, decreased redness, edema noted, positive radial pulse NERVOUS SYSTEM: Cranial N 2-12 grossly normal. Moves all 4 limbs. Diffuse weakness No focal deficits. Strength and sensation grossly intact.. Skin: Warm and dry, scrapes/scabs on the second third digits of left hand. - Labs CBC & Chem 7: 05/31/23 06:12 05/31/23 06:12 Labs: Microbiology - Last 24 Hours (Table) 05/29/23 10:40 Blood Culture - Preliminary Blood 05/29/23 10:25 Blood Culture - Preliminary Blood Assessment and Plan Assessment: Sepsis secondary to left septic olecranon bursitis, status post I&D of the left elbow and forearm Fevers, secondary to the above, blood cultures pending Lactic acidosis Leukocytosis Hyponatremia Osteoarthritis Chronic back pain Ongoing nicotine dependence History of prior alcohol abuse, uses thiamine 100 mg IM daily Hypokalemia Plan: Continue on current medication regime ,monitoring and symptomatic treatment. Pain management, IV fluid hydration. Cultures pending. Maintain IV antibiotics as per ID. close monitoring of renal function. Smoking cessation reinforced. The impression and plan of care has been dictated as directed. : I performed a history and examination of this patient, discussed the same with the dictator. I agree with the dictator's note ,documented as a scribe. Any additional findings or plans will be noted.
[2023-05-31] MEDS: POTASSIUM CHLORIDE ER 20 MEQ TAB.ER PO SCH (18:30)
[2023-05-31] MEDS: POTASSIUM CHLORIDE 20 MEQ in WATER FOR INJECTION 1 100ML.BAG IVPB SCH ×2 (18:33→21:36)
[2023-06-01] MEDS: MORPHINE SULFATE 4 MG/ML SYRINGE IV PRN (03:22)
[2023-06-01] MEDS: VANCOMYCIN 1,500 MG in SODIUM CHLORIDE 0.9% 500 ML 500 ML IVPB SCH ×2 (03:22→11:42)
--- NOTE | 2023-06-01 09:04 | P.PN ---
Progress Note - Text Progress Note Date: 06/01/23 Orthopedics: History of present illness: Patient is a very pleasant 57-year-old male who is seen and examined at bedside for follow-up evaluation of his left upper extremity. He is status post incision and drainage of the left elbow and forearm. He continues to have significant cellulitis and swelling at the upper humerus extending down to the left wrist. He has good range of motion of wrist and fingers of the left hand without difficulty. He does have pain with palpation over his left elbow and forearm. [place] remain intact over his surgical sites without any active drainage. Dressings have been removed over his left upper extremity. He has no new complaints at the bedside. He is being seen and examined by infectious disease who is currently planning for culture results with PICC line placement and IV antibiotics at the time of d ischarge. Patient is also being seen and examined by medicine. He has been remaining afebrile. He has had significant improvement of his leukocytosis. Physical Exam: Patient is awake, alert, and oriented 3 Vital signs stable Good chest excursion with deep inspiration and expiration Surgical incision sites at the left elbow and forearm remain intact with hadley intact No active drainage from the surgical sites Evidence of cellulitis at the left upper humerus extending down to the left wrist Good active range of motion of left wrist and fingers of the left hand Neurovascular intact left upper extremity Evidence of swelling and erythema over the left upper extremity Assessment: Status post incision and drainage of the left elbow and forearm Left elbow and forearm pain Sepsis secondary to left septic olecranon bursitis Fevers, secondary to the above, blood cultures pending Lactic acidosis Leukocytosis Hyponatremia Osteoarthritis Chronic back pain Ongoing nicotine dependence History of prior alcohol abuse Hypokalemia Plan: 1. Status post incision and drainage of the left elbow and forearm for infected bursitis of the left elbow. He does continue to have pain, swelling, and cellulitis with his left upper extremity at the upper humerus extending down to the left wrist. Currently, [place] remain intact over the surgical sites. Dressings have been removed. Patient is resting comfortably without a dressing intact. There is no active drainage from his surgical sites. Hadley will continue to remain intact and may be removed in 10-14 days. If surgical incision sites remained clean, dry, and intact, patient may shower without a dressing intact. We did discuss if he has active drainage surgical site should be covered. Currently, we are not planning for any further surgical intervention in regards to his left upper extremity. Patient will continue to be seen and examined by Dr. Chapa in infectious disease who will manage the patient's IV antibiotic regimen. Cultures are currently pending. Following finalization of culture results, patient will most likely receive PICC line for IV antibiotics at discharge. From an orthopedic standpoint, patient is clear for discharge. Patient may follow-up with Dr. Toro Sesay at [facility] in 1 week following discharge.
[2023-06-01] MEDS: FOLIC ACID 1 MG TAB PO SCH (09:29)
[2023-06-01] MEDS: NIFEdipine XL 30 MG TAB.ER.24 PO SCH (09:29)
[2023-06-01] MEDS: GABAPENTIN 300 MG CAP PO SCH ×3 (09:29→21:07)
[2023-06-01] MEDS: BUTALB/APAP/CAFF 50-325-40MG TAB PO SCH (09:29)
[2023-06-01] MEDS: THIAMINE 100 MG/ML 2 ML VIAL IM SCH (09:31)
[2023-06-01] MEDS: PANTOPRAZOLE 40 MG/10 ML VIAL IVP SCH (09:31)
[2023-06-01] MEDS: MELOXICAM 7.5 MG TAB PO SCH (09:32)
[2023-06-01] MEDS: HYDROcodone/APAP 10-325MG 1 EACH TAB PO SCH ×4 (09:32→21:07)
[2023-06-01] MEDS: NICOTINE 21MG/24HR PATCH TRANSDERM SCH ×2 (09:49→19:28)
[2023-06-01] MEDS ORDERED: VANCOMYCIN TROUGH DUE 1 EACH MISC MISCELLANE ONE (10:00)
[2023-06-01 10:20] LABS: Blood Urea Nitrogen 5.4 mg/dL (9.0-27.0); Calcium 7.8 mg/dL (8.7-10.3); Carbon Dioxide 22.4 mmol/L (21.6-31.8); Chloride 103 mmol/L (96-109); Glucose 106 mg/dL (70-110); Potassium 3.6 mmol/L (3.5-5.5); Sodium 135 mmol/L (135-145)
[2023-06-01] MEDS: PATIENT'S OWN (Dextroamphetamine/Amphetamine [Adderall] 20 MG Tablet) PO SCH ×2 (11:49→13:22)
--- NOTE | 2023-06-01 15:21 | P.PN ---
Subjective Progress Note Date: 06/01/23 Principal diagnosis: Reason for follow-up with sepsis and left olecranon septic bursitis Patient is a 57-year-old male with a past medical history significant for chronic back pain osteomyelitis presenting to the hospital for evaluation of left elbow pain and swelling patient symptom has been going on for about 2 days before presentation to the hospital patient has been diagnosed with sepsis secondary to septic left olecranon bursitis. Patient is status post Incision and drainage left elbow and forearm for septic olecranon bursitis on 05/30/2023 On today's evaluation that is 06/01/2023, the patient remains to be afebrile, the patient is breathing comfortably on room air, the patient denies any chest pain shortness of breath or cough patient denies having any nausea no vomiting did not have any abdominal pain no diarrhea has been reported, pain to the left up per extremity has decreased in intensity still has significant swelling but no drainage Patient white count normalized to 9.47 as of yesterday, creatinine 0.6 cultures are pending Objective - Vital Signs Vital signs: Vital Signs Temp 98.5 F 06/01/23 08:01 Pulse 83 06/01/23 08:01 Resp 20 06/01/23 08:01 BP 131/73 06/01/23 08:01 Pulse Ox 98 06/01/23 08:01 FiO2 Intake & Output 05/31/23 06/01/23 06/01/23 18:59 06:59 18:59 Intake Total 236 Balance 236 Intake: Oral 236 Other: # Voids 2 2 - Exam GENERAL DESCRIPTION: Middle-age male lying in bed in no distress RESPIRATORY SYSTEM: Unlabored breathing , decreased breath sounds at bases HEART: S1 S2 regular rate and rhythm , ABDOMEN: Soft , no tenderness EXTREMITIES: Left elbow incision is stapled still has significant swelling redness no drainage - Labs CBC & Chem 7: 05/31/23 06:12 06/01/23 06:03 Labs: Abnormal Lab Results - Last 24 Hours (Table) 05/31/23 05/31/23 Range/Units 06:12 06:12 RBC 3.90 L (4.40-5.60) X 10*6/uL Hgb 10.2 L (13.0-17.0) g/dL Hct 31.8 L (39.6-50.0) % MCH 26.2 L (27.0-32.0) pg RDW 14.9 H (11.5-14.5) % Immature Gran # 0.08 H (0.00-0.04) X 10*3/uL Lymphocytes # 0.82 L (0.90-5.00) X 10*3/uL Eosinophils # 0.01 L (0.04-0.35) X 10*3/uL Sodium 132 L (135-145) mmol/L Potassium 3.0 L (3.5-5.5) mmol/L BUN 7.9 L (9.0-27.0) mg/dL BUN/Creatinine Ratio 11.29 L (12.00-20.00) Ratio Glucose 147 H (70-110) mg/dL Calcium 7.8 L (8.7-10.3) mg/dL Microbiology - Last 24 Hours (Table) 05/30/23 18:53 Gram Stain - Preliminary Elbow - Left Wound Culture - Preliminary 05/30/23 18:53 Gram Stain - Preliminary Elbow - Left Wound Culture - Preliminary 05/29/23 10:40 Blood Culture - Preliminary Blood 05/29/23 10:25 Blood Culture - Preliminary Blood Assessment and Plan (1) Sepsis Current Visit: Yes Status: Acute Code(s): A41.9 - SEPSIS, UNSPECIFIED ORGANISM SNOMED Code(s): 52935808 (2) Other infective bursitis, left elbow Current Visit: Yes Status: Acute Code(s): M71.122 - OTHER INFECTIVE BURSITIS, LEFT ELBOW SNOMED Code(s): 099546932 Plan: 1patient presented to hospital with sepsis in this patient who did have fever elevated white count source is left septic olecranon bursitis likely from a gram-positive skin adali such as strep or Staph aureus 2--patient is status post Incision and drainage left elbow and forearm for septic olecranon bursitis on 05/30/2023, deep cultures currently pending 3-patient to continue vancomycin pharmacy to dose target trough of 15 while waiting for the culture to finalize to determine his discharge antibiotics will benefit from a short course of IV antibiotic this was discussed with the case management director Dictation was produced using [employer] software. please excuse any grammatical, word or spelling errors. Time with Patient: Less than 30
--- NOTE | 2023-06-01 15:35 | P.PN ---
Subjective Progress Note Date: 06/01/23 H&P Date: 05/30/23 Chief Complaint: Left elbow injury His is a pleasant 57-year-old gentleman with past medical history significant for osteoarthritis, chronic back pain, ongoing nicotine dependence, prior alcohol abuse and multiple other medical issues presented to the ER with left elbow pain, edema,redness. Patient reports possibly injured it while sl eepwalking, denies trauma. Originally seen on the in the ER, received IV clindamycin, recommended inpatient admission for IV antibiotics but patient declined was discharged on oral clindamycin. Patient had difficulty tolerating oral antibiotics, with nausea and vomiting with worsening left upper extremity,returned to the ER on 05/29/2023 and admitted. On admission, tachycardic, normotensive, maintaining O2 sats in the high 90s on room air with Temperature 100.6. T-max 103.1, WBC 18.5, CRP 38.8, lactic acid 2.3 -decreased to 0.8 with IV fluid hydration. Blood cultures in progress. Hemoglobin 13.3, platelets 169 . sodium 126, potassium 3.7, bicarb 23, BUN 14, creatinine 0.76 , glucose 1:15.serology did not detect influenza type A/B/RSV/COVID. Elbow x-ray reported persistent posterior olecranon and dorsal proximal forearm soft tissue swelling, no underlying joint effusion or acute osseous abnormality seen. Received cefazolin.Evaluated by infectious disease with antibiotics further adjusted to vancomycin. Orthopedic surgery consulted with I and D scheduled. Pain better controlled. Denies chest pain, palpitations or shortness of breath. Repeat BMP pending. 05/31/2023 MRI reported no evidence of osteomyelitis, suspected reactive lymph node of the medial aspect of the arm, fluid collection posterior to the olecranon process suspicious for abscess versus infected bursa, surrounding inflammation/cellulitis. Status post I&D of the elbow and the forearm, postop day #1. Tolerated procedure well. Cultures pending. Maintained on IV antibiotics of vancomycin. Renal function stable. Afebrile, T-max 102.3, WBC has normalized. Pain currently controlled. Hungry asking for diet advancement. Denies nausea vomiting or diarrhea. Denies any chest pain, palpitations or shortness of breath. 18 O2 sats in the high 90s on room air. 06/01/2023 maintained on vancomycin. Renal function stable. Afebrile, normal WBC. Cultures pending. Positive diet intake with no nausea vomiting or diarrhea. Positive bowel movement. Denies chest pain, palpitations or shortness of breath. Objective - Vital Signs Vital signs: Vital Signs Temp 98.5 F 06/01/23 14:46 Pulse 83 06/01/23 14:46 Resp 18 06/01/23 14:46 BP 128/88 06/01/23 14:46 Pulse Ox 99 06/01/23 14:46 FiO2 Intake & Output 05/31/23 06/01/23 06/01/23 18:59 06:59 18:59 Intake Total 236 Balance 236 Intake: Oral 236 Other: # Voids 2 2 - Exam PHYSICAL EXAM: VITAL SIGNS: As above GENERAL: Alert and oriented 3, Sitting up in bed, no acute distress HEENT: Normocephalic ,Conjunctivae normal. eyes normal. MMM. NECK: Supple, No JVD. CARDIOVASCULAR: S1, S2 regular.. No murmur RESPIRATION: Unlabored, equal air entry, bilateral bases diminished. ABDOMEN: Soft, nondistended, nontender . No guarding. +BS. EXTREMITIES: Left forearm/elbow tender , without drainage , hadley present, positive redness, edema and induration noted, moving wrist and fingers without difficulty ,positive radial pulse NERVOUS SYSTEM: Cranial N 2-12 grossly normal. Moves all 4 limbs. Diffuse weakness No focal deficits. Strength and sensation grossly intact. Skin: Warm and dry, scabs on the second third digits of left hand. - Labs CBC & Chem 7: 05/31/23 06:12 06/01/23 06:03 Labs: Abnormal Lab Results - Last 24 Hours (Table) 06/01/23 Range/Units 06:03 BUN 5.4 L (9.0-27.0) mg/dL BUN/Creatinine Ratio 9.00 L (12.00-20.00) Ratio Calcium 7.8 L (8.7-10.3) mg/dL Microbiology - Last 24 Hours (Table) 05/30/23 18:53 Gram Stain - Preliminary Elbow - Left Wound Culture - Preliminary 05/30/23 18:53 Gram Stain - Preliminary Elbow - Left Wound Culture - Preliminary 05/29/23 10:40 Blood Culture - Preliminary Blood 05/29/23 10:25 Blood Culture - Preliminary Blood Assessment and Plan Assessment: Sepsis secondary to left septic olecranon bursitis, status post I&D of the left elbow and forearm Fevers, secondary to the above, blood cultures pending Lactic acidosis Leukocytosis Hyponatremia, resolved Osteoarthritis Chronic back pain Ongoing nicotine dependence History of prior alcohol abuse, uses thiamine 100 mg IM daily Hypokalemia, resolved Plan: Continue on current medication regime ,monitoring and symptomatic treatment. Pain management adjusted, IV fluid hydration. Cultures pending. IV antibiotics as per ID. ID discussing potential PICC line placement. close monitoring of renal function. Smoking cessation reinforced. The impression and plan of care has been dictated as directed. : I performed a history and examination of this patient, discussed the same with the dictator. I agree with the dictator's note ,documented as a scribe. Any additional findings or plans will be noted.
[2023-06-01] MEDS: VANCOMYCIN 1,250 MG in SODIUM CHLORIDE 0.9% 250 ML IVPB SCH (21:07)
[2023-06-02] MEDS: HYDROcodone/APAP 10-325MG 1 EACH TAB PO SCH ×6 (01:11→20:52)
[2023-06-02] MEDS: PATIENT'S OWN (Dextroamphetamine/Amphetamine [Adderall] 20 MG Tablet) PO SCH ×2 (02:14→13:23)
[2023-06-02] MEDS: VANCOMYCIN 1,250 MG in SODIUM CHLORIDE 0.9% 250 ML IVPB SCH ×2 (05:16→13:17)
[2023-06-02 06:34] LABS: African American GFR (CKD) >90 (>60 ml/min/1.73 sqM); Anion Gap 3 mmol/L; Blood Urea Nitrogen 6 mg/dL (9-20); Calcium 7.8 mg/dL (8.4-10.2); Carbon Dioxide 25 mmol/L (22-30); Chloride 107 mmol/L (98-107); Glucose 95 mg/dL (74-99); Non-African American GFR(CKD) >90 (>60 ml/min/1.73 sqM); Potassium 3.5 mmol/L (3.5-5.1); Sodium 135 mmol/L (137-145)
[2023-06-02] MEDS: MELOXICAM 7.5 MG TAB PO SCH (08:51)
[2023-06-02] MEDS: NIFEdipine XL 30 MG TAB.ER.24 PO SCH (08:52)
[2023-06-02] MEDS: FOLIC ACID 1 MG TAB PO SCH (08:53)
[2023-06-02] MEDS: BUTALB/APAP/CAFF 50-325-40MG TAB PO SCH (08:53)
[2023-06-02] MEDS: PANTOPRAZOLE 40 MG/10 ML VIAL IVP SCH (08:53)
[2023-06-02] MEDS: THIAMINE 100 MG/ML 2 ML VIAL IM SCH (08:55)
[2023-06-02] MEDS: GABAPENTIN 300 MG CAP PO SCH ×3 (08:56→20:51)
[2023-06-02] MEDS: RIMEGEPANT SULFATE PO SCH (11:53)
--- NOTE | 2023-06-02 13:42 | P.PN ---
Subjective Progress Note Date: 06/02/23 His is a pleasant 57-year-old gentleman with past medical history significant for osteoarthritis, chronic back pain, ongoing nicotine dependence, prior alcohol abuse and multiple other medical issues presented to the ER with left elbow pain, edema,redness. Patient reports possibly injured it while sleepw alking, denies trauma. Originally seen on the in the ER, received IV clindamycin, recommended inpatient admission for IV antibiotics but patient declined was discharged on oral clindamycin. Patient had difficulty tolerating oral antibiotics, with nausea and vomiting with worsening left upper extremity,returned to the ER on 05/29/2023 and admitted. On admission, tachycardic, normotensive, maintaining O2 sats in the high 90s on room air with Temperature 100.6. T-max 103.1, WBC 18.5, CRP 38.8, lactic acid 2.3 -decreased to 0.8 with IV fluid hydration. Blood cultures in progress. Hemoglobin 13.3, platelets 169 . sodium 126, potassium 3.7, bicarb 23, BUN 14, creatinine 0.76 , glucose 1:15.serology did not detect influenza type A/B/RSV/COVID. Elbow x-ray reported persistent posterior olecranon and dorsal proximal forearm soft tissue swelling, no underlying joint effusion or acute osseous abnormality seen. Received cefazolin.Evaluated by infectious disease with antibiotics further adjusted to vancomycin. Orthopedic surgery consulted with I and D scheduled. Pain better controlled. Denies chest pain, palpitations or shortness of breath. Repeat BMP pending. 05/31/2023 MRI reported no evidence of osteomyelitis, suspected reactive lymph node of the medial aspect of the arm, fluid collection posterior to the olecranon process suspicious for abscess versus infected bursa, surrounding inflammation/cellulitis. Status post I&D of the elbow and the forearm, postop day #1. Tolerated procedure well. Cultures pending. Maintained on IV antibiotics of vancomycin. Renal function stable. Afebrile, T-max 102.3, WBC has normalized. Pain currently controlled. Hungry asking for diet advancement. Denies nausea vomiting or diarrhea. Denies any chest pain, palpitations or shortness of breath. 18 O2 sats in the high 90s on room air. 06/01/2023 maintained on vancomycin. Renal function stable. Afebrile, normal WBC. Cultures pending. Positive diet intake with no nausea vomiting or diarrhea. Positive bowel movement. Denies chest pain, palpitations or shortness of breath. 03/02. Patient seen and examined. States left elbow pain is improved. Denies any fever or chills REVIEW OF SYSTEMS: CONSTITUTIONAL: No fever, no malaise,. CARDIOVASCULAR: No chest pain, no palpitations, no syncope. PULMONARY: No shortness of breath, no cough, GASTROINTESTINAL: No diarrhea, no nausea, no vomiting, no abdominal pain. NEUROLOGICAL: No headaches, no weakness, PHYSICAL EXAMINATION: GENERAL: The patient is alert and oriented x3, not in any acute distress. Well developed, well nourished. HEENT: Pupils are round and equally reacting to light. EOMI. No scleral icterus. No conjunctival pallor. Normocephalic, atraumatic. No pharyngeal erythema. No thyromegaly. CARDIOVASCULAR: S1 and S2 present. No murmurs, rubs, or gallops. PULMONARY: Chest is clear to auscultation, no wheezing or crackles. ABDOMEN: Soft, nontender, nondistended, normoactive bowel sounds. No palpable organomegaly. MUSCULOSKELETAL: Erythema left elbow improved EXTREMITIES: No cyanosis, clubbing, or pedal edema. NEUROLOGICAL: Gross neurological examination did not reveal any focal deficits. SKIN: No rashes. Assessment and plan Sepsis secondary to left septic olecranon bursitis, status post I&D of the left elbow and forearm Fevers, secondary to the above, blood cultures pending Lactic acidosis Leukocytosis Hyponatremia, resolved Osteoarthritis Chronic back pain Ongoing nicotine dependence History of prior alcohol abuse, uses thiamine 100 mg IM daily Hypokalemia, resolved Monitor vital signs Monitor CBC Monitor CMP Continue telemetry monitoring Follow-up on culture Continue vancomycin pharmacy to dose Continue pain management ID following Labs and medication were reviewed.. Continue same treatment. Continue with s ymptomatic treatment. Resume home medication. Monitor labs and vitals. DVT and GI prophylaxis. Further recommendations as per clinical course of the patient Dictation was produced using [employer] dictation software. please excuse any grammatical, word or spelling errors. Objective - Vital Signs Vital signs: Vital Signs Temp 97.9 F 06/02/23 07:53 Pulse 69 06/02/23 07:53 Resp 16 06/02/23 07:53 BP 144/78 06/02/23 07:53 Pulse Ox 97 06/02/23 07:53 FiO2 Intake & Output 06/01/23 06/02/23 06/02/23 18:59 06:59 18:59 Other: # Voids 2 - Labs CBC & Chem 7: 05/31/23 06:12 06/02/23 05:43 Labs: Abnormal Lab Results - Last 24 Hours (Table) 06/02/23 Range/Units 05:43 Sodium 135 L (137-145) mmol/L BUN 6 L (9-20) mg/dL Creatinine 0.49 L (0.66-1.25) mg/dL Calcium 7.8 L (8.4-10.2) mg/dL Microbiology - Last 24 Hours (Table) 05/30/23 18:53 Gram Stain - Final Elbow - Left Wound Culture - Final 05/30/23 18:53 Gram Stain - Final Elbow - Left Wound Culture - Final 05/29/23 10:40 Blood Culture - Preliminary Blood 05/29/23 10:25 Blood Culture - Preliminary Blood
[2023-06-02] MEDS ORDERED: NICOTINE 21MG/24HR PATCH TRANSDERM STA (17:44)
[2023-06-03] MEDS: HYDROcodone/APAP 10-325MG 1 EACH TAB PO SCH ×6 (00:52→20:58)
[2023-06-03] MEDS: PATIENT'S OWN (Dextroamphetamine/Amphetamine [Adderall] 20 MG Tablet) PO SCH ×2 (03:44→13:41)
--- NOTE | 2023-06-03 04:04 | P.PN ---
Subjective Progress Note Date: 06/02/23 Principal diagnosis: Reason for follow-up with sepsis and left olecranon septic bursitis This is a telehealth visit Patient is a 57-year-old male with a past medical history significant for chronic back pain osteomyelitis presenting to the hospital for evaluation of left elbow pain and swelling patient symptom has been going on for about 2 days before presentation to the hospital patient has been diagnosed with sepsis secondary to septic left olecranon bursitis. Patient is status post Incision and drainage left elbow and forearm for septic olecranon bursitis on 05/30/2023 On today's evaluation that is 06/02/2023 the patient remains to be afebrile, the patient is breathing comfortably currently on room air, the patient denies having any chest pain shortness of breath or cough no nausea no vomiting no abdominal pain and no diarrhea, the patient denies any worsening pain to the left upper extremity. Patient white count 9.47 as of 05/31/2023 creatinine 0.49 local culture so far negative Objective - Vital Signs Vital signs: Vital Signs Temp 98.8 F 06/02/23 14:59 Pulse 83 06/02/23 14:59 Resp 15 06/02/23 14:59 BP 148/70 06/02/23 14:59 Pulse Ox 96 06/02/23 14:59 FiO2 Intake & Output 06/01/23 06/02/23 06/02/23 18:59 06:59 18:59 Other: # Voids 2 - Exam Middle-age male lying in bed in no distress Respiratory system unlabored breathing decreased breath sound the base Heart S1-S2 regular Abdominal soft no tenderness Left upper extremity elbow area hadley are intact overall swelling redness has decreased and no foul-smelling drainage reported Exam completed with the help of [employer]DERING MACHINE OPERATOR [employer] - Labs CBC & Chem 7: 05/31/23 06:12 06/02/23 05:43 Labs: Abnormal Lab Results - Last 24 Hours (Table) 06/02/23 Range/Units 05:43 Sodium 135 L (137-145) mmol/L BUN 6 L (9-20) mg/dL Creatinine 0.49 L (0.66-1.25) mg/dL Calcium 7.8 L (8.4-10.2) mg/dL Microbiology - Last 24 Hours (Table) 05/30/23 18:53 Anaerobic Culture - Preliminary Elbow - Left 05/30/23 18:53 Anaerobic Culture - Preliminary Elbow - Left 05/30/23 18:53 Gram Stain - Final Elbow - Left Wound Culture - Final 05/30/23 18:53 Gram Stain - Final Elbow - Left Wound Culture - Final 05/29/23 10:40 Blood Culture - Preliminary Blood 05/29/23 10:25 Blood Culture - Preliminary Blood Assessment and Plan (1) Sepsis Current Visit: Yes Status: Acute Code(s): A41.9 - SEPSIS, UNSPECIFIED ORGANISM SNOMED Code(s): 52030434 (2) Other infective bursitis, left elbow Current Visit: Yes Status: Acute Code(s): M71.122 - OTHER INFECTIVE BURSITIS, LEFT ELBOW SNOMED Code(s): 298941775 Plan: 1patient presented to hospital with sepsis in this patient who did have fever elevated white count source is left septic olecranon bursitis likely from a gram-positive skin adali such as strep or Staph aureus 2--patient is status post Incision and drainage left elbow and forearm for septic olecranon bursitis on 05/30/2023, deep cultures negative for any resistant pathogen 3-we will discontinue vancomycin as no resistant pathogen has been grown start the patient on cefazolin and see clinical response and monitor clinical course closely Dictation was produced using [employer] dictation software. please excuse any grammatical, word or spelling errors. Time with Patient: Less than 30
[2023-06-03 07:30] LABS: African American GFR (CKD) >90 (>60 ml/min/1.73 sqM); Non-African American GFR(CKD) >90 (>60 ml/min/1.73 sqM)
[2023-06-03] MEDS: PANTOPRAZOLE 40 MG/10 ML VIAL IVP SCH (08:58)
[2023-06-03] MEDS: NIFEdipine XL 30 MG TAB.ER.24 PO SCH (08:59)
[2023-06-03] MEDS: GABAPENTIN 300 MG CAP PO SCH ×3 (08:59→20:58)
[2023-06-03] MEDS: BUTALB/APAP/CAFF 50-325-40MG TAB PO SCH (09:00)
[2023-06-03] MEDS: THIAMINE 100 MG/ML 2 ML VIAL IM SCH (09:00)
[2023-06-03] MEDS: FOLIC ACID 1 MG TAB PO SCH (09:00)
[2023-06-03] MEDS: MELOXICAM 7.5 MG TAB PO SCH ×2 (09:01→17:33)
[2023-06-03] MEDS ORDERED: VANCOMYCIN IV PER PHARMACY 1 EACH MISC MISCELLANE PRN (10:21)
[2023-06-03] MEDS ORDERED: VANCOMYCIN TROUGH DUE 1 EACH MISC MISCELLANE ONE (12:00)
[2023-06-03] MEDS: VANCOMYCIN 1,250 MG in SODIUM CHLORIDE 0.9% 250 ML IVPB SCH ×2 (12:22→18:06)
--- NOTE | 2023-06-03 12:58 | P.PN ---
Subjective Progress Note Date: 06/03/23 His is a pleasant 57-year-old gentleman with past medical history significant for osteoarthritis, chronic back pain, ongoing nicotine dependence, prior alcohol abuse and multiple other medical issues presented to the ER with left elbow pain, edema,redness. Patient reports possibly injured it while sleepw alking, denies trauma. Originally seen on the in the ER, received IV clindamycin, recommended inpatient admission for IV antibiotics but patient declined was discharged on oral clindamycin. Patient had difficulty tolerating oral antibiotics, with nausea and vomiting with worsening left upper extremity,returned to the ER on 05/29/2023 and admitted. On admission, tachycardic, normotensive, maintaining O2 sats in the high 90s on room air with Temperature 100.6. T-max 103.1, WBC 18.5, CRP 38.8, lactic acid 2.3 -decreased to 0.8 with IV fluid hydration. Blood cultures in progress. Hemoglobin 13.3, platelets 169 . sodium 126, potassium 3.7, bicarb 23, BUN 14, creatinine 0.76 , glucose 1:15.serology did not detect influenza type A/B/RSV/COVID. Elbow x-ray reported persistent posterior olecranon and dorsal proximal forearm soft tissue swelling, no underlying joint effusion or acute osseous abnormality seen. Received cefazolin.Evaluated by infectious disease with antibiotics further adjusted to vancomycin. Orthopedic surgery consulted with I and D scheduled. Pain better controlled. Denies chest pain, palpitations or shortness of breath. Repeat BMP pending. 05/31/2023 MRI reported no evidence of osteomyelitis, suspected reactive lymph node of the medial aspect of the arm, fluid collection posterior to the olecranon process suspicious for abscess versus infected bursa, surrounding inflammation/cellulitis. Status post I&D of the elbow and the forearm, postop day #1. Tolerated procedure well. Cultures pending. Maintained on IV antibiotics of vancomycin. Renal function stable. Afebrile, T-max 102.3, WBC has normalized. Pain currently controlled. Hungry asking for diet advancement. Denies nausea vomiting or diarrhea. Denies any chest pain, palpitations or shortness of breath. 18 O2 sats in the high 90s on room air. 06/01/2023 maintained on vancomycin. Renal function stable. Afebrile, normal WBC. Cultures pending. Positive diet intake with no nausea vomiting or diarrhea. Positive bowel movement. Denies chest pain, palpitations or shortness of breath. 06/02. Patient seen and examined. States left elbow pain is improved. Denies any fever or chills 06/03. Patient seen and examined. Still complaining of left elbow pain. Patient antibiotics were switched to IV cefazolin but patient stated that his arm started burning after IV antibiotics so it was stopped .Vital signs stable. REVIEW OF SYSTEMS: CONSTITUTIONAL: No fever, no malaise,. CARDIOVASCULAR: No chest pain, no palpitations, no syncope. PULMONARY: No shortness of breath, no cough, GASTROINTESTINAL: No diarrhea, no nausea, no vomiting, no abdominal pain. NEUROLOGICAL: No headaches, no weakness, PHYSICAL EXAMINATION: GENERAL: The patient is alert and oriented x3, not in any acute distress. Well developed, well nourished. HEENT: Pupils are round and equally reacting to light. EOMI. No scleral icterus. No conjunctival pallor. Normocephalic, atraumatic. No pharyngeal erythema. No thyromegaly. CARDIOVASCULAR: S1 and S2 present. No murmurs, rubs, or gallops. PULMONARY: Chest is clear to auscultation, no wheezing or crackles. ABDOMEN: Soft, nontender, nondistended, normoactive bowel sounds. No palpable organomegaly. MUSCULOSKELETAL: Erythema left elbow improved EXTREMITIES: No cyanosis, clubbing, or pedal edema. NEUROLOGICAL: Gross neurological examination did not reveal any focal deficits. SKIN: No rashes. Assessment and plan Sepsis secondary to left septic olecranon bursitis, status post I&D of the left elbow and forearm Fevers, secondary to the above, blood cultures pending Lactic acidosis Leukocytosis Hyponatremia, resolved Osteoarthritis Chronic back pain Ongoing nicotine dependence History of prior alcohol abuse, uses thiamine 100 mg IM daily Hypokalemia, resolved Monitor vital signs Monitor CBC Monitor CMP Follow-up on culture Continue pharmacy dose vancomycin Continue pain management ID following Labs and medication were reviewed.. Continue same treatment. Continue with sy mptomatic treatment. Resume home medication. Monitor labs and vitals. DVT and GI prophylaxis. Further recommendations as per clinical course of the patient Dictation was produced using [employer] dictation software. please excuse any grammatical, word or spelling errors. Objective - Vital Signs Vital signs: Vital Signs Temp 98.8 F 06/03/23 07:41 Pulse 83 06/03/23 07:41 Resp 14 06/03/23 07:41 BP 147/80 06/03/23 07:41 Pulse Ox 98 06/03/23 07:41 FiO2 Intake & Output 06/02/23 06/03/23 06/03/23 18:59 06:59 18:59 Other: # Voids 2 - Labs CBC & Chem 7: 05/31/23 06:12 06/03/23 06:33 Labs: Abnormal Lab Results - Last 24 Hours (Table) 06/03/23 Range/Units 06:33 Creatinine 0.51 L (0.66-1.25) mg/dL Microbiology - Last 24 Hours (Table) 05/30/23 18:53 Anaerobic Culture - Preliminary Elbow - Left 05/30/23 18:53 Anaerobic Culture - Preliminary Elbow - Left 05/30/23 18:53 Gram Stain - Final Elbow - Left Wound Culture - Final 05/30/23 18:53 Gram Stain - Final Elbow - Left Wound Culture - Final
[2023-06-03] MEDS: NICOTINE 21MG/24HR PATCH TRANSDERM SCH ×2 (18:06→20:06)
[2023-06-03 19:54] VITALS: RESP 16
[2023-06-04] MEDS: HYDROcodone/APAP 10-325MG 1 EACH TAB PO SCH ×3 (00:57→09:20)
--- NOTE | 2023-06-04 02:19 | P.PN ---
Subjective Progress Note Date: 06/03/23 Principal diagnosis: Reason for follow-up with sepsis and left olecranon septic bursitis This is a telehealth visit Patient is a 57-year-old male with a past medical history significant for chronic back pain osteomyelitis presenting to the hospital for evaluation of left elbow pain and swelling patient symptom has been going on for about 2 days before presentation to the hospital patient has been diagnosed with sepsis secondary to septic left olecranon bursitis. Patient is status post Incision and drainage left elbow and forearm for septic olecranon bursitis on 05/30/2023 On today's evaluation that is 06/03/2023 the patient continues to be afebrile, the patient is breathing comfortably on room air patient denies having any chest pain occasional cough no sputum production, the pt denies nausea vomiting no abdominal pain no diarrhea, patient mention he did have a burning sensation to the left upper extremity when cefazolin was infusing yesterday and subsequently refused further doses of cefazolin. Patient did have a creatinine of 0.51 cultures remains to be negative Objective - Vital Signs Vital signs: Vital Signs Temp 98.8 F 06/03/23 07:41 Pulse 83 06/03/23 07:41 Resp 14 06/03/23 07:41 BP 147/80 06/03/23 07:41 Pulse Ox 98 06/03/23 07:41 FiO2 Intake & Output 06/02/23 06/03/23 06/03/23 18:59 06:59 18:59 Other: # Voids 2 - Exam Middle-age male lying in bed in no distress Respiratory system unlabored breathing decreased breath sound the base Heart S1-S2 regular Abdominal soft no tenderness Left upper extremity elbow area hadley are intact overall swelling redness has decreased and no foul-smelling drainage reported Exam completed with the help of [employer]IL[employer] OPERATOR - Labs CBC & Chem 7: 05/31/23 06:12 06/03/23 06:33 Labs: Abnormal Lab Results - Last 24 Hours (Table) 06/03/23 Range/Units 06:33 Creatinine 0.51 L (0.66-1.25) mg/dL Microbiology - Last 24 Hours (Table) 05/30/23 18:53 Anaerobic Culture - Preliminary Elbow - Left 05/30/23 18:53 Anaerobic Culture - Preliminary Elbow - Left 05/30/23 18:53 Gram Stain - Final Elbow - Left Wound Culture - Final 05/30/23 18:53 Gram Stain - Final Elbow - Left Wound Culture - Final Assessment and Plan (1) Sepsis Current Visit: Yes Status: Acute Code(s): A41.9 - SEPSIS, UNSPECIFIED ORGANISM SNOMED Code(s): 15643963 (2) Other infective bursitis, left elbow Current Visit: Yes Status: Acute Code(s): M71.122 - OTHER INFECTIVE BURSITIS, LEFT ELBOW SNOMED Code(s): 886254848 Plan: 1patient presented to hospital with sepsis in this patient who did have fever elevated white count source is left septic olecranon bursitis likely from a gram-positive skin adali such as strep or Staph aureus 2--patient is status post Incision and drainage left elbow and forearm for septic olecranon bursitis on 05/30/2023, deep cultures negative for any resistant pathogen 3-patient is refusing cefazolin even though it was explained to the patient that burning sensation to the left extremity no correlation with the cefazolin however he continued to refuse we will go ahead and discontinue cefazolin, restart vancomycin order PICC line for outpatient IV antibiotic therapy Dictation was produced using [employer] dictation software. please excuse any grammatical, word or spelling errors. Time with Patient: Less than 30
[2023-06-04 03:03] VITALS: TEMP 98.2
[2023-06-04] MEDS: VANCOMYCIN 1,250 MG in SODIUM CHLORIDE 0.9% 250 ML IVPB SCH ×3 (03:05→12:19)
[2023-06-04] MEDS: PATIENT'S OWN (Dextroamphetamine/Amphetamine [Adderall] 20 MG Tablet) PO SCH (04:37)
[2023-06-04 06:54] LABS: African American GFR (CKD) >90 (>60 ml/min/1.73 sqM); Non-African American GFR(CKD) >90 (>60 ml/min/1.73 sqM)
[2023-06-04 08:30] VITALS: BP 144/77; PULSE 77
[2023-06-04] MEDS ORDERED: MELOXICAM 7.5 MG TAB PO SCH (09:00)
[2023-06-04] MEDS ORDERED: ERGOCALCIFEROL 1,250 MCG (50,000 IU) CAPSULE PO SCH (09:00)
[2023-06-04] MEDS: BUTALB/APAP/CAFF 50-325-40MG TAB PO SCH (09:21)
[2023-06-04] MEDS: GABAPENTIN 300 MG CAP PO SCH (09:21)
[2023-06-04] MEDS: FOLIC ACID 1 MG TAB PO SCH (09:21)
[2023-06-04] MEDS: NIFEdipine XL 30 MG TAB.ER.24 PO SCH (09:21)
[2023-06-04] MEDS: THIAMINE 100 MG/ML 2 ML VIAL IM SCH (09:21)
[2023-06-04] MEDS: PANTOPRAZOLE 40 MG/10 ML VIAL IVP SCH (09:22)
--- NOTE | 2023-06-04 11:20 | P.DS ---
Providers Date of admission: 05/29/23 11:51 Expected date of discharge: 06/04/23 Attending physician: Tim Rod MD Consults: 05/29/23 13:02 Consult Physician Urgent Consulting Provider: Toro Sesay Consult Reason/Comments: Infectious bursitis left elbow, r/o joint involvement Do you want consulting provider notified?: Yes 05/29/23 13:03 Consult Physician Urgent Consulting Provider: Hernandez Chapa Consult Reason/Comments: Suspected left elbow infectious bursitis Do you want consulting provider notified?: Yes Primary care physician: Tim Rod MD Hospital Course: Final Diagnoses: Sepsis secondary to left septic olecranon bursitis, status post I&D of the left elbow and forearm, likely gram-positive skin adali such as strep or staph aureus, deep cultures negative for resistant pathogen Fevers, secondary to the above, blood cultures pending Lactic acidosis Leukocytosis Hyponatremia, resolved Osteoarthritis Chronic back pain Ongoing nicotine dependence History of prior alcohol abuse, uses thiamine 100 mg IM daily Hypokalemia, resolved Hospital course:His is a pleasant 57-year-old gentleman with past medical history significant for osteoarthritis, chronic back pain, ongoing nicotine dependence, prior alcohol abuse and multiple other medical issues presented to the ER with left elbow pain, edema,redness. Patient reports possibly injured it while sleepwalking, denies trauma. Originally seen on the in the ER, received IV clindamycin, recommended inpatient admission for IV antibiotics but patient declined was discharged on oral clindamycin. Patient had difficulty tolerating oral antibiotics, with nausea and vomiting with worsening left upper extremity,returned to the ER on 05/29/2023 and admitted. On admission, tachycardic, normotensive, maintaining O2 sats in the high 90s on room air with Temperature 100.6. T-max 103.1, WBC 18.5, CRP 38.8, lactic acid 2.3 -decreased to 0.8 with IV fluid hydration. Blood cultures in progress. Hemoglobin 13.3, platelets 169 . sodium 126, potassium 3.7, bicarb 23, BUN 14, creatinine 0.76 , glucose 1:15.serology did not detect influenza type A/B/RSV/COVID. Elbow x-ray reported persistent posterior olecranon and dorsal proximal forearm soft tissue swelling, no underlying joint effusion or acute osseous abnormality seen. Received cefazolin.Evaluated by infectious disease with antibiotics further adjusted to vancomycin. Orthopedic surgery consulted with I and D scheduled. Pain better controlled. Denies chest pain, palpitations or shortness of breath. Repeat BMP pending. 05/31/2023 MRI reported no evidence of osteomyelitis, suspected reactive lymph node of the medial aspect of the arm, fluid collection posterior to the olecranon process suspicious for abscess versus infected bursa, surrounding inflammation/cellulitis. Status post I&D of the elbow and the forearm, postop day #1. Tolerated procedure well. Cultures pending. Maintained on IV antibiotics of vancomycin. Renal function stable. Afebrile, T-max 102.3, WBC has normalized. Pain currently controlled. Hungry asking for diet advancement. Denies nausea vomiting or diarrhea. Denies any chest pain, palpitations or shortness of breath. 18 O2 sats in the high 90s on room air. 06/01/2023 maintained on vancomycin. Renal function stable. Afebrile, normal WBC. Cultures pending. Positive diet intake with no nausea vomiting or diarrhea. Positive bowel movement. Denies chest pain, palpitations or shortness of breath. Microbiology 05/29/23 10:40 Blood Blood Culture - Final 05/29/23 10:25 Blood Blood Culture - Final 05/30/23 18:53 Elbow - Left Anaerobic Culture - Preliminary 05/30/23 18:53 Elbow - Left Anaerobic Culture - Preliminary 05/30/23 18:53 Elbow - Left Gram Stain - Final 05/30/23 18:53 Elbow - Left Wound Culture - Final 05/30/23 18:53 Elbow - Left Gram Stain - Final 05/30/23 18:53 Elbow - Left Wound Culture - Final Significant clinical improvement. Afebrile, left upper extremity with decreased redness, decreased swelling , decreased tenderness .Denies chest pain, palpitations or shortness of breath. Patient will be discharged home today pending PICC line, final DC recommendations/antibiotics as per ID. The impression and plan of care has been dictated as directed. : I performed a history and examination of this patient, discussed the same with the dictator. I agree with the dictator's note ,documented as a scribe. Any additional findings or plans will be noted. Patient Condition at Discharge: Stable Plan - Discharge Summary New Discharge Prescriptions: New Nicotine 21Mg/24Hr Patch [Habitrol] 1 patch TRANSDERM HS #30 patch Neomycin/Bacitracin/Polymyxinb [Neosporin Ointment] 1 applic TOPICAL DAILY #15 gm Sennosides-Docusate Sodium [Senokot-S] 2 each PO HS PRN #0 tab PRN Reason: Constipation Chlorhexidine Gluconate [Hibiclens] 1 applic TOPICAL DIRECTED #118 ml Continue Dextroamphetamine/Amphetamine [Adderall] 20 mg PO BID Gabapentin [Neurontin] 300 mg PO TID Ergocalciferol (Vitamin D2) [Drisdol (50,000 Iu)] 1,250 mcg PO MO Butalb/APAP/Caff 50-325-40Mg [Fioricet 50-325-40] 1 tab PO DAILY NIFEdipine [Adalat CC] 30 mg PO DAILY Folic Acid 1 mg PO DAILY Rimegepant Sulfate [Nurtec Odt] 75 mg PO Q48H HYDROcodone/APAP 10-325MG [Frazer 10-325] 1 tab PO QID Diclofenac Sodium [Solaraze 3% Gel] 1 applic TOPICAL QID PRN PRN Reason: Pain Thiamine 100ml/Ml Solution 1 ml INJ DAILY diphenhydrAMINE [Benadryl] 25 mg PO BID PRN PRN Reason: Allergy Symptoms Celecoxib [CeleBREX] 200 mg PO BID Discharge Medication List Dextroamphetamine/Amphetamine [Adderall] 20 mg PO BID 12/11/17 [History] Gabapentin [Neurontin] 300 mg PO TID 12/11/17 [History] Butalb/APAP/Caff 50-325-40Mg [Fioricet 50-325-40] 1 tab PO DAILY 05/29/23 [History] Celecoxib [CeleBREX] 200 mg PO BID 05/29/23 [History] Diclofenac Sodium [Solaraze 3% Gel] 1 applic TOPICAL QID PRN 05/29/23 [History] Ergocalciferol (Vitamin D2) [Drisdol (50,000 Iu)] 1,250 mcg PO MO 05/29/23 [History] Folic Acid 1 mg PO DAILY 05/29/23 [History] HYDROcodone/APAP 10-325MG [Frazer 10-325] 1 tab PO QID 05/29/23 [History] NIFEdipine [Adalat CC] 30 mg PO DAILY 05/29/23 [History] Rimegepant Sulfate [Nurtec Odt] 75 mg PO Q48H 05/29/23 [History] Thiamine 100ml/Ml Solution 1 ml INJ DAILY 05/29/23 [History] diphenhydrAMINE [Benadryl] 25 mg PO BID PRN 05/29/23 [History] Chlorhexidine Gluconate [Hibiclens] 1 applic TOPICAL DIRECTED #118 ml 06/04/23 [Rx] Neomycin/Bacitracin/Polymyxinb [Neosporin Ointment] 1 applic TOPICAL DAILY #15 gm 06/04/23 [Rx] Nicotine 21Mg/24Hr Patch [Habitrol] 1 patch TRANSDERM HS #30 patch 06/04/23 [Rx] Sennosides-Docusate Sodium [Senokot-S] 2 each PO HS PRN #0 tab 06/04/23 [Rx] Follow up Appointment(s)/Referral(s): Tim Rod MD [Primary Care Provider] - 1-2 days Toro Sesay DO [Doctor of Osteopathic Medicine] - 1 Week (Patient may follow-up with Dr. Toro Sesay at [facility] in 1 week following discharge. ) Activity/Diet/Wound Care/Special Instructions: 1. Keep hadley intact over the surgical incision sites at the left elbow and forearm. 2. [place] may be removed in 10-14 days 3. If surgical incision sites continue to remain dry and intact, patient may shower without a dressing intact 4. Avoid standing water; avoid bathtub 5. Avoid any excessive activities for the left upper extremity 6. Take medications as prescribed
[2023-06-04] MEDS: RIMEGEPANT SULFATE PO SCH (12:17)
[2023-06-04] MEDS ORDERED: VANCOMYCIN TROUGH DUE 1 EACH MISC MISCELLANE ONE (18:00)
--- NOTE | 2023-06-04 23:32 | P.PN ---
Subjective Progress Note Date: 06/04/23 Principal diagnosis: Reason for follow-up with sepsis and left olecranon septic bursitis This is a telehealth visit Patient is a 57-year-old male with a past medical history significant for chronic back pain osteomyelitis presenting to the hospital for evaluation of left elbow pain and swelling patient symptom has been going on for about 2 days before presentation to the hospital patient has been diagnosed with sepsis secondary to septic left olecranon bursitis. Patient is status post Incision and drainage left elbow and forearm for septic olecranon bursitis on 05/30/2023 On today's evaluation that is 06/04/2023 the patient remains to be afebrile, patient is breathing comfortably on room air without need for supplemental oxygen, the patient denies having any chest pain no significant cough or sputum production no nausea vomiting no abdominal pain and no diarrhea, still complaining of pain to the left upper extremity but no drainage patient has been threatening to leave AMA if he does not get his PICC line today for outpatient IV antibiotics Patient creatinine 0.54 no CBC was done today cultures remains to be negative Objective - Vital Signs Vital signs: Vital Signs Temp 98.2 F 06/04/23 08:11 Pulse 77 06/04/23 08:11 Resp 16 06/04/23 08:11 BP 144/77 06/04/23 08:11 Pulse Ox 98 06/04/23 08:11 FiO2 Intake & Output 06/03/23 06/04/23 06/04/23 18:59 06:59 18:59 Other: # Voids 3 - Labs CBC & Chem 7: 05/31/23 06:12 06/04/23 05:45 Labs: Abnormal Lab Results - Last 24 Hours (Table) 06/04/23 Range/Units 05:45 Creatinine 0.54 L (0.66-1.25) mg/dL Microbiology - Last 24 Hours (Table) 05/29/23 10:40 Blood Culture - Final Blood 05/29/23 10:25 Blood Culture - Final Blood Assessment and Plan (1) Sepsis Status: Acute Code(s): A41.9 - SEPSIS, UNSPECIFIED ORGANISM SNOMED Code(s): 76607762 (2) Other infective bursitis, left elbow Status: Acute Code(s): M71.122 - OTHER INFECTIVE BURSITIS, LEFT ELBOW SNOMED Code(s): 280080916 Plan: 1patient presented to hospital with sepsis in this patient who did have fever elevated white count source is left septic olecranon bursitis likely from a gram-positive skin adali such as strep or Staph aureus 2--patient is status post Incision and drainage left elbow and forearm for septic olecranon bursitis on 05/30/2023, deep cultures negative for any resistant pathogen 3-patient has been advised to stay in the hospital till he can get the PICC line and outpatient diabetes mellitus arrange however the patient is refusing and threatening to leave AMA Case has been discussed in detail with the nurse practitioner for admitting team and the patient decided to leave May consider oral Keflex and doxycycline x 2 weeks on discharge Dictation was produced using [employer]i dictation software. please excuse any grammatical, word or spelling errors. Time with Patient: Less than 30
== END 2023-06-04 12:44 | disposition left against medical advice (07) | DRG 710 ==
LOC: EC 09:06 → 5NMEDONC 11:51 → 6NMEDSUR 19:16
PROVIDERS: ADMIT Family Medicine; ATTEND Family Medicine
PROC: 0R9M0ZZ Drainage of Left Elbow Joint, Open Approach (ICD-10-PCS; principal; 2023-05-30 14:05)
DX: A41.89 Other specified sepsis (principal); E87.20 Acidosis, unspecified; E87.1 Hypo-osmolality and hyponatremia; F10.11 Alcohol abuse, in remission; M71.122 Other infective bursitis, left elbow; G89.29 Other chronic pain; M54.9 Dorsalgia, unspecified; F17.210 Nicotine dependence, cigarettes, uncomplicated; F51.3 Sleepwalking [somnambulism]; L03.114 Cellulitis of left upper limb; E87.6 Hypokalemia; M19.90 Unspecified osteoarthritis, unspecified site; B96.89 Other specified bacterial agents as the cause of diseases classified elsewhere; Z53.29 Procedure and treatment not carried out because of patient's decision for other reasons; Z79.891 Long term (current) use of opiate analgesic; Z79.899 Other long term (current) drug therapy; Z79.1 Long term (current) use of non-steroidal anti-inflammatories (NSAID); Z88.1 Allergy status to other antibiotic agents; Z88.8 Allergy status to other drugs, medicaments and biological substances; Z11.52 Encounter for screening for COVID-19; Z28.310 Unvaccinated for COVID-19; Z87.39 Personal history of other diseases of the musculoskeletal system and connective tissue
CPT/HCPCS: 36415; 80048; 80053; 80202; 82565; 83605; 83735; 85025; 85652; 86140; 87040; 87070; 87075; 87205; 87636; 96361; 96374; 96375; 99285